=== PATIENT | female | born 1950 | race Caucasian/White ===

== ENCOUNTER 2021-08-27 17:12 | Emergency (ER) | payer MEDICARE, SELFPAY ==
[2021-08-27 17:13] VITALS: BP 165/105; PULSE 66; RESP 16; TEMP 36; O2SAT 100; BMI 37.2
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
--- NOTE | 2021-08-27 17:39 | EKG12_ITS ---
Test Reason : Syncope Blood Pressure : / mmHG Vent. Rate : 063 BPM Atrial Rate : 063 BPM P-R Int : 180 ms QRS Dur : 094 ms QT Int : 424 ms P-R-T Axes : 063 029 073 degrees QTc Int : 433 ms Normal sinus rhythm Normal ECG Confirmed by EZ PARKS, KIMBERLEE ([id number]), fan mail editor FELIBERTO WALTON ([id number]) on 08/29/2021 9:20:36 AM Referred By: Venkata Confirmed By:REJI HUI MD
[2021-08-27 17:56] VITALS: BP 173/120; BP 176/96; BP 185/81; PULSE 66; PULSE 68; PULSE 69
[2021-08-27 18:01] LABS: Absolute Lymphocyte Count 1.14 X10^3/uL (0.83-4.51); Absolute Neutrophil Count 4.5 X10^3/uL (2.0-7.7); Basophil# 0.02 X10^3/uL; Basophil% 0.3 % (0-1); Eosinophil# 0.13 X10^3/uL; Eosinophils% 2.1 % (0-5); Hematocrit 34.7 % (37-47); Hemoglobin 11.3 g/dL (12.0-15.0); Lymphocyte # 1.14 X10^3/ul (0.83-4.51); Mean Corp Hgb Conc 32.6 g/dL (32-36); Mean Corpuscular Hgb 31.8 pg (27.0-32.0); Mean Corpuscular Volume 97.7 fL (81-99); Monocyte# 0.53 X10^3/uL; Monocyte% 8.4 % (0-10); NRBC Flagged by Analyzer 0 % (0-5); Neutrophil # 4.49 X10^3/uL (2.7-7.7); Neutrophil % 70.9 % (47-70); Platelet Count 281 K/mm3 (150-450); RBC Distribution Width CV 14.7 % (11.6-14.6); RBC Distribution Width SD 53.3 fl (35.1-43.9); Red Blood Count 3.55 M/mm3 (4.2-5.4); White Blood Count 6.3 K/mm3 (4.4-11.0)
--- NOTE | 2021-08-27 18:07 | RAD_ITS ---
STUDY: X-RAY CHEST REASON FOR EXAM: Female, 71 years old. Syncope TECHNIQUE: Single frontal view of the chest. COMPARISON: None. FINDINGS: The lungs are clear and expanded. There is no demonstrated pleural abnormality. Normal size heart. Normal mediastinum and allie. Normal visualized pulmonary arteries. Normal visualized aortic arch and descending thoracic aorta. Normal visualized thoracic spine. Normal visualized ribs, clavicles, and shoulders. There is no demonstrated abnormality of the visualized soft tissue structures of the upper abdomen. RAD/Chest 1 View (Portable) IMPRESSION: Normal x-ray examination of the chest. Electronically Signed: Zeke Mullins MD at 18:46 EDT ,
[2021-08-27 18:18] LABS: Mucous, Urine 0 SEEN /hpf (<or=2+)
[2021-08-27 18:21] LABS: Color, Urine Yellow (Yellow); Glucose, Dipstick Normal (Normal); Ketone-Dipstick Negative (Negative); Leukocyte Esterase-Dipstick 500 /ul (Negative); Nitrite-Dipstick Negative (Negative); Occult Blood-Urine 10 /ul (Negative); Protein-Dipstick 100 mg/dl (Negative); Specific Gravity, Urine 1.015 (1.002-1.030); Urine Bilirubin Dipstick Negative (Negative); Urine Clarity Sl. Cloudy (Clear); Urine Urobilinogen Normal (Normal)
[2021-08-27 18:34] LABS: ALB/GLOB Ratio 1.1 RATIO (0.9-2.4); AST(SGOT) 21 U/L (15-37); Alanine Aminotransfer ALT/SGPT 19 U/L (13-56); Albumin, Serum 3.8 g/dL (3.2-5.0); Alkaline Phosphatase 75 U/L (45-117); Anion Gap 7 (5-15); BUN 21 mg/dL (7-18); BUN/Creat Ratio 17.8 RATIO (10-20); Calcium,Total 9.3 mg/dL (8.5-10.1); Chloride 107 mmol/L (98-107); Creatinine, Serum 1.18 mg/dL (0.55-1.02); EST Glomerular Filtration Rate 48 mL/min (>60); Est Glom Filt Rate - Afr Amer 58 mL/min (>60); Estimated Creatinine Clearance 37.22 ml/min; Globulin 3.6 g/dL (2.2-4.2); Glucose 101 mg/dL (74-106); Potassium 3.7 mmol/L (3.5-5.1); Protein, Total 7.4 g/dL (6.4-8.2); Sodium Level 141 mmol/L (136-145); Troponin-I HS 19 pg/mL (3.0-54.0)
[2021-08-27 19:34] LABS: Bacteria 2+ /hpf (None Seen); Calcium Oxalate Crystals Ur 1+ /hpf (<or=2+); Hyaline Cast 5-10 SEEN /lpf (0-5); Red Blood Cells-Urine 5-10 SEEN /hpf (0-5); Squamous Epithelial Cells - UA 5-10 SEEN /hpf (5-10); White Blood Cells 10-25 SEEN /hpf (0-5); Yeast-Urine 1+ /hpf (None Seen)
[2021-08-27] MEDS: Cephalexin 500 MG Capsule PO (20:42)
== END 2021-08-27 20:42 | disposition home or self-care (01) ==
PROVIDERS: Emergency Provider Emergency Medicine; Visit Provider Emergency Medicine
DX: R55 Syncope and collapse (principal); N39.0 Urinary tract infection, site not specified; I10 Essential (primary) hypertension; E66.9 Obesity, unspecified; Z79.899 Other long term (current) drug therapy
CPT/HCPCS: 71045; 80053; 81001; 84484; 85025; 93005; 99285; A4216

== ENCOUNTER 2021-09-08 20:47 | Emergency (ER) | payer MEDICARE, SELFPAY ==
[2021-09-08 20:47] VITALS: BP 177/98; PULSE 72; RESP 16; RESP 18; TEMP 36.7; O2SAT 96; BMI 39.6
--- NOTE | 2021-09-08 21:25 | ED.RN ---
Patient arrived via EMS soiled in dried stool from mid waist to toes. Bed bath given on arrival. During bath patient stated she lived alone and cares for self and ambulates on own, normally is continent.
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
[2021-09-08 21:40] LABS: Absolute Lymphocyte Count 0.83 X10^3/uL (0.83-4.51); Absolute Neutrophil Count 5.6 X10^3/uL (2.0-7.7); Hemoglobin 11.8 g/dL (12.0-15.0); Lymphocyte # 0.83 X10^3/ul (0.83-4.51); Lymphocyte % 11.6 % (19-41); Mean Corp Hgb Conc 32.8 g/dL (32-36); Mean Corpuscular Hgb 31.7 pg (27.0-32.0); Mean Corpuscular Volume 96.8 fL (81-99); Mean Platelet Vol. 9.4 fl (6.2-12.0); Monocyte# 0.68 X10^3/uL; Monocyte% 9.5 % (0-10); NRBC Flagged by Analyzer 0 % (0-5); Neutrophil # 5.62 X10^3/uL (2.7-7.7); Neutrophil % 78.5 % (47-70); Platelet Count 255 K/mm3 (150-450); RBC Distribution Width CV 15.3 % (11.6-14.6); RBC Distribution Width SD 54.3 fl (35.1-43.9); Red Blood Count 3.72 M/mm3 (4.2-5.4); White Blood Count 7.2 K/mm3 (4.4-11.0)
[2021-09-08 21:45] LABS: Color, Urine Yellow (Yellow); Glucose, Dipstick Normal (Normal); Ketone-Dipstick 5 mg/dl (Negative); Leukocyte Esterase-Dipstick 100 /ul (Negative); Nitrite-Dipstick Negative (Negative); Occult Blood-Urine 25 /ul (Negative); Protein-Dipstick 500 mg/dl (Negative); Specific Gravity, Urine 1.015 (1.002-1.030); Urine Bilirubin Dipstick Negative (Negative); Urine Clarity Sl. Cloudy (Clear); Urine Urobilinogen Normal (Normal)
--- NOTE | 2021-09-08 21:45 | RAD_ITS ---
INDICATION: injury EXAMINATION/TECHNIQUE: X-RAY - RIGHT XR Knee 1 or 2 Views 2 VIEWS COMPARISON: None. FINDINGS: SOFT TISSUES: Soft tissue swelling in the knee. No radiopaque foreign body. BONES/JOINTS: No acute fracture. Severe joint space narrowing, subchondral sclerosis and osteophytosis and lateral subluxation at the knee joint, worst in the lateral compartment. Osseous structures in the suprapatellar region measuring up to 2.3 cm, may represent joint body. RAD/Knee 1 or 2 Views IMPRESSION: No acute fracture or dislocation. Severe osteoarthritic changes with lateral subluxation. Electronically Signed: Adrian Wilson MD at 22:12 EDT ,
[2021-09-08 21:54] LABS: Anion Gap 7 (5-15); BUN 19 mg/dL (7-18); BUN/Creat Ratio 14.5 RATIO (10-20); CPK Total, Creatine Kinase 84 U/L (26-192); Calcium,Total 9.1 mg/dL (8.5-10.1); Chloride 105 mmol/L (98-107); Creatinine, Serum 1.31 mg/dL (0.55-1.02); EST Glomerular Filtration Rate 43 mL/min (>60); Est Glom Filt Rate - Afr Amer 52 mL/min (>60); Estimated Creatinine Clearance 33.53 ml/min; Glucose 116 mg/dL (74-106); Potassium 3.5 mmol/L (3.5-5.1); Sodium Level 139 mmol/L (136-145)
[2021-09-08 21:57] LABS: Red Blood Cells-Urine 0-5 SEEN /hpf (0-5); Squamous Epithelial Cells - UA 0-5 SEEN /hpf (5-10); White Blood Cells 10-25 SEEN /hpf (0-5)
[2021-09-08 21:58] LABS: Bacteria 1+ /hpf (None Seen); Mucous, Urine RARE /hpf (<or=2+)
[2021-09-08 23:59] VITALS: BP 211/84; PULSE 76; RESP 16; O2SAT 96
[2021-09-09 00:15] VITALS: BP 211/84; PULSE 76; RESP 16; O2SAT 96
[2021-09-09] MEDS: Smz/Tmp Ds Tablet 1 TABLET PO (00:16)
[2021-09-09 00:42] VITALS: BP 204/88; PULSE 60; RESP 18
== END 2021-09-09 00:48 | disposition home or self-care (01) ==
PROVIDERS: Emergency Provider Emergency Medicine; Visit Provider Emergency Medicine
DX: S80.01XA Contusion of right knee, initial encounter (principal); N39.0 Urinary tract infection, site not specified; M17.11 Unilateral primary osteoarthritis, right knee; I10 Essential (primary) hypertension; E66.9 Obesity, unspecified; W18.39XA Other fall on same level, initial encounter; Z79.899 Other long term (current) drug therapy; Z96.652 Presence of left artificial knee joint
CPT/HCPCS: 73560; 80048; 81001; 82550; 85025; 87086; 87088; 96360; 99285; J7040; A4216

== ENCOUNTER 2022-06-22 19:18 | Observation (INO) | payer MEDICARE, SELFPAY ==
[2022-06-22 19:19] VITALS: BP 232/96; PULSE 89; RESP 18; TEMP 36.5; O2SAT 98; BMI 43.0
--- NOTE | 2022-06-22 19:36 | RAD_ITS ---
INDICATION: Right foot and ankle pain. EXAMINATION/TECHNIQUE: X-RAY - RIGHT XR Ankle Min 3 Views. 3 views. X-RAY - RIGHT XR foot Min 3 Views. 3 views. COMPARISON: None. FINDINGS: SOFT TISSUES: Generalized soft tissue swelling at the lower extremity, ankle and foot. No radiopaque foreign body. BONES/JOINTS: Osteopenia. No acute fracture or subluxation.. Midfoot degenerative changes. First MTP joint degenerative change. Mild degenerative change at the ankle. Small plantar and Achilles tendon enthesophytes. Hammertoe deformities. No sclerotic or destructive changes observed. RAD/Ankle min 3 Views IMPRESSION: No acute osseous injury. Electronically Signed: Bull Gorman MD at 20:47 EDT ,
[2022-06-22 19:43] LABS: Absolute Lymphocyte Count 0.67 X10^3/uL (0.83-4.51); Absolute Neutrophil Count 9.5 X10^3/uL (2.0-7.7); Basophil# 0.01 X10^3/uL; Basophil% 0.1 % (0-1); Hematocrit 38.9 % (37-47); Hemoglobin 12.8 g/dL (12.0-15.0); Lymphocyte # 0.67 X10^3/ul (0.83-4.51); Lymphocyte % 6.1 % (19-41); Mean Corp Hgb Conc 32.9 g/dL (32-36); Mean Corpuscular Hgb 31.4 pg (27.0-32.0); Mean Corpuscular Volume 95.6 fL (81-99); Monocyte# 0.74 X10^3/uL; Monocyte% 6.8 % (0-10); NRBC Flagged by Analyzer 0 % (0-5); Neutrophil # 9.47 X10^3/uL (2.7-7.7); Neutrophil % 86.7 % (47-70); Platelet Count 257 K/mm3 (150-450); RBC Distribution Width CV 14.4 % (11.6-14.6); RBC Distribution Width SD 50.4 fl (35.1-43.9); Red Blood Count 4.07 M/mm3 (4.2-5.4); White Blood Count 10.9 K/mm3 (4.4-11.0)
--- NOTE | 2022-06-22 19:48 | RAD_ITS ---
INDICATION: Right foot and ankle pain. EXAMINATION/TECHNIQUE: X-RAY - RIGHT XR Ankle Min 3 Views. 3 views. X-RAY - RIGHT XR foot Min 3 Views. 3 views. COMPARISON: None. FINDINGS: SOFT TISSUES: Generalized soft tissue swelling at the lower extremity, ankle and foot. No radiopaque foreign body. BONES/JOINTS: Osteopenia. No acute fracture or subluxation.. Midfoot degenerative changes. First MTP joint degenerative change. Mild degenerative change at the ankle. Small plantar and Achilles tendon enthesophytes. Hammertoe deformities. No sclerotic or destructive changes observed. RAD/Foot min 3 Views IMPRESSION: No acute osseous injury. Electronically Signed: Bull Gorman MD at 20:47 EDT ,
[2022-06-22] MEDS: Lisinopril 40 MG Tablet PO (19:50)
[2022-06-22] MEDS: Labetalol (Prefilled) 20 MG/4 ML 10 MG IV (19:50)
--- NOTE | 2022-06-22 19:57 | EDS_ITS ---
HPI <BRANDAN Rowland - Last Filed: 06/22/22 21:07> History of Present Illness Chief Complaint: Edema Narrative Narrative: Patient is a 72-year-old female with history of hypertension, cholesterol, obesity who presents to the emergency department for 4 days of right lower leg swelling. Patient appears to be living in a dilapidated house, she states some nights she sleeps in her house however it is cold she sleeps in her van. Patient states that she is missing ceiling tiles in her house, and it gets too cold. Patient today was going to drive and get gas for her van, however she was unable to step out of her van secondary to not being able to lift her right foot. Patient also states that she has not been taking her blood pressure medicine. She came by ambulance, EMS states that the house is dilapidated, the patient looks disheveled, she has feces and urine down her legs. When asking how she gets around she says she has a rake in her house that she uses however when she has to go into public she does not need the right. PFSH <BRANDAN Rowland - Last Filed: 06/22/22 21:07> [facility] Medical History Chronic acquired lymphedema CKD (chronic kidney disease), stage III Gout HLD (hyperlipidemia) Hypertension Morbid obesity Home Medications allopurinol 300 mg tablet 300 mg PO DAILY 08/27/21 [History Last Taken Unknown] atorvastatin 40 mg tablet 40 mg PO QHS 08/27/21 [History Last Taken Unknown] carvedilol 25 mg tablet 25 mg PO BID 08/27/21 [History Last Taken Unknown] citalopram 20 mg tablet 20 mg PO DAILY 08/27/21 [History Last Taken Unknown] furosemide 20 mg tablet 20 mg PO DAILY 08/27/21 [History Last Taken Unknown] lisinopril 40 mg tablet 40 mg PO DAILY 08/27/21 [History Last Taken Unknown] Allergy/AdvReac Type Severity Reaction Status Date / Time No Known Allergies Allergy Verified 06/22/22 21:49 Family History (Updated 06/22/22 @ 21:[address] Ronda Vega MD) Mother Non-Hodgkins lymphoma Surgical History History of total left knee replacement Social History (Updated 06/22/22 @ 21:[address] Ronda Vega MD) household members: none housing: other details: Per EMS unkempt and unsafe living situation. Smoking Status: Never smoker alcohol intake: current alcohol intake frequency: a few times a month Alcohol type: beer substance use type: does not use ROS <BRANDAN Rowland - Last Filed: 06/22/22 21:07> ROS ED ROS Narrative Constitutional: Negative for fever, chills, weight loss, weakness Eyes: Negative for vision loss, vision change, double vision ENT: Negative for any sore throat, ear pain, congestion Cardiovascular: Negative for any chest pain, tightness, palpitations Respiratory: Negative for any cough, sputum production, hemoptysis, dyspnea, dyspnea on exertion, orthopnea Gastrointestinal: Negative for any abdominal pain, nausea, vomiting, diarrhea, constipation, blood in stool, blood in vomit : Negative for any urinary frequency, dysuria, retention, blood in urine Muscle skeletal: Negative for any muscle joint pain, stiffness, myalgias, arthralgias, neck pain, back pain. Positive for right leg pain, right leg swelling Neurological: Negative for any headache, syncope, numbness or tingling, dizziness Skin: Negative for any rashes, lumps, itching, abrasions, lacerations Psychiatric: Negative for any depression, anxiety, stress, suicidal ideation, homicidal ideation Hematologic: Negative for any easy bruising, excessive bruising, easy bleeding Allergies: Negative for any eczema, hives, rash EXAM <BRANDAN Rowland - Last Filed: 06/22/22 21:07> Physical Exam Narrative Exam Narrative: Vital signs reviewed. Patient is morbidly obese, patient is disheveled, patient is alert and orient x4 however does get annoyed with the multiple questions I am asking. HEET: Head normocephalic atraumatic, TMs clear bilaterally. Posterior pharynx is clear, moist mucous membranes. Nares clear bilaterally. Neck: Supple with no lymphadenopathy or tenderness. No signs of meningismus, negative jolt sign. Cardiac: Regular rate and rhythm no murmurs gallops or rubs, equal peripheral pulses bilaterally. Respiratory: Lungs clear to auscultation bilaterally. No chest tenderness. Abdomen: Soft, nontender, nondistended. No abdominal bruit or pulsatile masses. No hepatosplenomegaly Extremities: Patient does have significant swelling to the right foot, right ankle of the right lower extremity. The right leg feels more tight appearing, no pitting edema. Patient's left leg is also large however not as large as the right. There is no pitting edema. Patient legs are full of feces and urine. Patient's feet have multiple debris stuck to them. Neuro: Cranial nerves II through XII intact, no focal neurological deficits. Skin: intact with no rash, purpura, petechiae, vesicles or pustules. Patient appears to not have bathed in multiple days Backs/flank: No CVA tenderness, no midline spinal tenderness, no deformity. Psych: Normal mood and affect. No SI, HI or acute psychosis. Const Vital Signs: 06/22/22 19:19 06/22/22 19:25 06/22/22 20:25 Temperature 97.7 F L Temperature Source Oral Pulse Rate 89 86 Respiratory Rate 18 16 Respiratory Effort Normal Respiratory Pattern Normal Blood Pressure 232/96 H 195/102 H Blood Pressure Mean 141 133 Pulse Ox 98 97 Oxygen Delivery Method Room Air Room Air Positive cachectic General Appearance ED: cachectic Nutritional Appearance: cachectic <Dr. Cyndi Pena MD - Last Filed: 06/23/22 00:11> Physical Exam Const Vital Signs: 06/22/22 19:19 06/22/22 19:25 06/22/22 20:25 Temperature 97.7 F L Temperature Source Oral Pulse Rate 89 86 Respiratory Rate 18 16 Respiratory Effort Normal Respiratory Pattern Normal Blood Pressure 232/96 H 195/102 H Blood Pressure Mean 141 133 Pulse Ox 98 97 Oxygen Delivery Method Room Air Room Air MDM <BRANDAN Rowland - Last Filed: 06/22/22 21:07> [facility] Lab Data Labs: Laboratory Results - last 24 hr 06/22/22 06/22/22 06/22/22 19:35 19:35 19:35 WBC 10.9 RBC 4.07 L Hgb 12.8 Hct 38.9 MCV 95.6 MCH 31.4 MCHC 32.9 RDW Std Deviation 50.4 H RDW Coeff of Anu 14.4 Plt Count 257 MPV 9.0 Immature Gran % (Auto) 0.300 Neut % (Auto) 86.7 H Lymph % (Auto) 6.[address] [place] % (Auto) 6.8 Eos % (Auto) 0.0 Baso % (Auto) 0.1 Absolute Neuts (auto) 9.5 H Absolute Lymphs (auto) 0.67 L Nucleated RBC % 0 PT INR APTT D-Dimer Quant (PE/DVT) Sodium 140 Potassium 3.9 Chloride 106 Carbon Dioxide 23.0 Anion Gap 11 BUN 40 H Creatinine 1.73 H Estim Creat Clear Calc 25.03 Est GFR (MDRD) Af Amer 37 L Est GFR (MDRD) Non-Af 31 L BUN/Creatinine Ratio 23.1 H Glucose 124 H Calcium 9.8 Phosphorus Magnesium Troponin I High Sens 40 B-Natriuretic Peptide 54.2 06/22/22 06/22/22 06/22/22 19:35 19:35 19:35 WBC RBC Hgb Hct MCV MCH MCHC RDW Std Deviation RDW Coeff of Anu Plt Count MPV Immature Gran % (Auto) Neut % (Auto) Lymph % (Auto) [place] % (Auto) Eos % (Auto) Baso % (Auto) Absolute Neuts (auto) Absolute Lymphs (auto) Nucleated RBC % PT 13.2 INR 1.0 APTT 29.7 D-Dimer Quant (PE/DVT) 3.56 H* Sodium Potassium Chloride Carbon Dioxide Anion Gap BUN Creatinine Estim Creat Clear Calc Est GFR (MDRD) Af Amer Est GFR (MDRD) Non-Af BUN/Creatinine Ratio Glucose Calcium Phosphorus 4.7 Magnesium 1.7 Troponin I High Sens B-Natriuretic Peptide Radiography Diagnostic Testing: Clinical Impression(s) from Imaging Studies Ankle X-Ray 06/22/22 19:36 IMPRESSION: No acute osseous injury. Electronically Signed: Bull Gorman MD at 20:47 EDT , Foot X-Ray 06/22/22 19:48 IMPRESSION: No acute osseous injury. Electronically Signed: Bull Gorman MD at 20:47 EDT , Treatment and Re-Evaluation :: Patient appears to be in no respiratory distress, patient vital signs showed elevated blood pressure 232/96 on arrival, she denies any chest pain or shortness of breath. Patient appears disheveled, and according to the EMS, patient lives in a dilapidated house is not caring for herself. Patient's main concern was right leg swelling, it is more swollen.There is concern for DVT, as patient has pain to the foot as well as to the calf. It is more tender on palpation. Patient did receive x-rays of the right foot and ankle. These x- rays were grossly unremarkable. No evidence of fracture or dislocation. Patient's laboratory values show normal CBC, patient does have acute renal injury with a creatinine of 1.73, in August 2021, the patient's creatinine is 1.3, this is elevated. Patient is also not been taking her blood pressure medicine. I did provide her with lisinopril prior to laboratory studies secondary to this is what she takes at home as well as labetalol 10 mg. Patient's blood pressure is now 181/88. Patient's D-dimer was 3.56. Secondary to this being Thursday evening, venous duplex does not able to be completed. Along with a concern for blood clot in the right leg, elevated blood pressure, I believe the patient needs to be admitted for social standpoint. She is living a dilapidated house, she is sitting in her own feces and urine. She is unable to get around, using a rake at home. She is sleeping in her car because her roof is caving in. I did speak with the hospitalist, she is in agreement, the patient will be a full admission. <Dr. Cyndi Pena MD - Last Filed: 06/23/22 00:11> [facility] Lab Data Labs: Laboratory Results - last 24 hr 06/22/22 06/22/22 06/22/22 19:35 19:35 19:35 WBC 10.9 RBC 4.07 L Hgb 12.8 Hct 38.9 MCV 95.6 MCH 31.4 MCHC 32.9 RDW Std Deviation 50.4 H RDW Coeff of Anu 14.4 Plt Count 257 MPV 9.0 Immature Gran % (Auto) 0.300 Neut % (Auto) 86.7 H Lymph % (Auto) 6.[address] [place] % (Auto) 6.8 Eos % (Auto) 0.0 Baso % (Auto) 0.1 Absolute Neuts (auto) 9.5 H Absolute Lymphs (auto) 0.67 L Nucleated RBC % 0 PT INR APTT D-Dimer Quant (PE/DVT) Sodium 140 Potassium 3.9 Chloride 106 Carbon Dioxide 23.0 Anion Gap 11 BUN 40 H Creatinine 1.73 H Estim Creat Clear Calc 25.03 Est GFR (MDRD) Af Amer 37 L Est GFR (MDRD) Non-Af 31 L BUN/Creatinine Ratio 23.1 H Glucose 124 H Calcium 9.8 Phosphorus Magnesium Troponin I High Sens 40 B-Natriuretic Peptide 54.2 06/22/22 06/22/22 06/22/22 19:35 19:35 19:35 WBC RBC Hgb Hct MCV MCH MCHC RDW Std Deviation RDW Coeff of Anu Plt Count MPV Immature Gran % (Auto) Neut % (Auto) Lymph % (Auto) [place] % (Auto) Eos % (Auto) Baso % (Auto) Absolute Neuts (auto) Absolute Lymphs (auto) Nucleated RBC % PT 13.2 INR 1.0 APTT 29.7 D-Dimer Quant (PE/DVT) 3.56 H* Sodium Potassium Chloride Carbon Dioxide Anion Gap BUN Creatinine Estim Creat Clear Calc Est GFR (MDRD) Af Amer Est GFR (MDRD) Non-Af BUN/Creatinine Ratio Glucose Calcium Phosphorus 4.7 Magnesium 1.7 Troponin I High Sens B-Natriuretic Peptide Radiography Diagnostic Testing: Clinical Impression(s) from Imaging Studies Ankle X-Ray 06/22/22 19:36 IMPRESSION: No acute osseous injury. Electronically Signed: Bull Gorman MD at 20:47 EDT , Foot X-Ray 06/22/22 19:48 IMPRESSION: No acute osseous injury. Electronically Signed: Bull Gorman MD at 20:47 EDT , Treatment and Re-Evaluation :: Patient appears to be in no respiratory distress, patient vital signs showed elevated blood pressure 232/96 on arrival, she denies any chest pain or shortness of breath. Patient appears disheveled, and according to the EMS, patient lives in a dilapidated house is not caring for herself. Patient's main concern was right leg swelling, it is more swollen.There is concern for DVT, as patient has pain to the foot as well as to the calf. It is more tender on palpation. Patient did receive x-rays of the right foot and ankle. These x- rays were grossly unremarkable. No evidence of fracture or dislocation. Patient's laboratory values show normal CBC, patient does have acute renal injury with a creatinine of 1.73, in August 2021, the patient's creatinine is 1.3, this is elevated. Patient is also not been taking her blood pressure medicine. I did provide her with lisinopril prior to laboratory studies secondary to this is what she takes at home as well as labetalol 10 mg. Patient's blood pressure is now 181/88. Patient's D-dimer was 3.56. Secondary to this being Thursday evening, venous duplex does not able to be completed. Along with a concern for blood clot in the right leg, elevated blood pressure, I believe the patient needs to be admitted for social standpoint. She is living a dilapidated house, she is sitting in her own feces and urine. She is unable to get around, using a rake at home. She is sleeping in her car because her roof is caving in. I did speak with the hospitalist, she is in agreement, the patient will be a full admission. Patient seen and evaluated with [facility]. I personally interviewed and examined the patient. I was involved in all aspects of patient's orders, interpretation of results, and treatment. Patient presents due to concern for right leg swelling. She states she is noticed this for the last week. She is concerned she may have a blood clot. She denies chest pain or shortness of breath. Patient is noted to be significantly hypertensive on arrival. She states she did not take her blood pressure medicine this morning but is normally compliant with her medicine. She does not know what her blood pressure normally runs. Patient sitting upright in bed no acute distress. She is unkempt. Head and neck examination reveals no evidence of trauma. Heart is regular rate and rhythm. Lung sounds are clear. Abdomen is soft with no focal tenderness. Lower extremity examination does reveal 3+ right lower extremity edema. She has dried stool noted on her feet and lower legs. Laboratory evaluation reveals normal white count at 10.9 and normal hemoglobin at 12.8. Chemistry studies reveal a BUN of 40 and a creatinine 1.73. This appears slightly increased over prior labs available for comparison. Troponin is normal at 40. BNP is 54. D-dimer is elevated at 3.56. Patient has presented on a Thursday evening when I do not have ultrasound available. She has been given her blood pressure medication to control her hypertension along with a dose of IV labetalol. At this time she will be admitted for blood pressure control and health and social care teacher evaluation. Ultrasound of the leg will be obtained in the morning to evaluate for DVT. Discharge Plan Dx/Rx/DC Orders Clinical Impression: Adult failure to thrive, Hypertension, Acute kidney injury Disposition Disposition: [facility] Discharge Date/Time: 06/22/22 21:31
[2022-06-22 20:03] LABS: BNP,B-Type NATRIURETIC PEPTIDE 54.2 pg/mL (0-100)
[2022-06-22 20:06] LABS: Anion Gap 11 (5-15); BUN 40 mg/dL (7-18); BUN/Creat Ratio 23.1 RATIO (10-20); Calcium,Total 9.8 mg/dL (8.5-10.1); Chloride 106 mmol/L (98-107); Creatinine, Serum 1.73 mg/dL (0.55-1.02); EST Glomerular Filtration Rate 31 mL/min (>60); Est Glom Filt Rate - Afr Amer 37 mL/min (>60); Estimated Creatinine Clearance 25.03 ml/min; Glucose 124 mg/dL (74-106); Potassium 3.9 mmol/L (3.5-5.1); Sodium Level 140 mmol/L (136-145); Troponin-I HS 40 pg/mL (3.0-54.0)
[2022-06-22 20:25] VITALS: BP 195/102; PULSE 86; RESP 16; O2SAT 97
[2022-06-22 20:33] LABS: D-Dimer Quantitative (DVT/PE) 3.56 FEU/ug/m (0.27-0.49)
--- NOTE | 2022-06-22 20:57 | VDLE_ITS ---
Reason For Study: ELEVATED D-DIMER RIGHT GSV is normal. CFV is compressible, spontaneous, phasic, competent and demonstrates normal augmentation. FV is compressible, spontaneous, phasic, competent and demonstrates normal augmentation. POP V is compressible, spontaneous, phasic, competent and demonstrates normal augmentation. T/P Trunk is compressible. PTV is compressible. RT PerV is compressible. NON-VASCULAR structure noted in the POP FOSSA space measuring 3.11cm x 2.57cm. Procedure This is a venous duplex using B-mode, color flow and spectral Doppler. Exam performed portable in patient room. The study was technically difficult. Due to morbid obesity. A preliminary report was called and/or faxed to [facility]. VL/Venous Duplex US, Unilateral Interpretation Summary There is no evidence of right lower extremity deep vein thrombosis. Right great saphenous vein appears patent and compressible segmentally. Technically very difficult examina tion secondary to body habitus Poorly visualized right popliteal nonvascular structure measuring 3.11 x 2.5 cm . Appears somewhat complex solid cystic. Clinical correlation would be appropriate. Ordering Physician: Ronda Vega Referring Physician: [facility] Performed By: Idalia Looney, ROBINA, RVT
[2022-06-22 21:08] VITALS: BP 163/93; PULSE 86; RESP 18; TEMP 36.6; O2SAT 97
[2022-06-22 21:11] LABS: Prothrombin Time (Protime)PT. 13.2 SECONDS (11.7-14.9)
[2022-06-22 21:12] LABS: Partial Thromboplast Time 29.7 Seconds (24.1-36.2)
[2022-06-22 21:15] LABS: Magnesium 1.7 mg/dL (1.6-2.6); Phosphorus 4.7 mg/dL (2.5-4.9)
[2022-06-22 21:34] VITALS: BMI 41.8
--- NOTE | 2022-06-22 21:59 | PCM.HP.STD ---
HPI - General General Date of Admission: 06/22/22 Date of Service: 06/22/22 Chief Complaint: RLE edema, > baseline, discomfort RLE. HPI Narrative The patient is a 72 y/o F w/ PMHx: Morbid Obesity, Chronic BL LE Lymphedema, HTN, HLD, Gout, Anxiety and Depression, CKD stage III unclear subtype who presents to the [facility] ED on 06/22/22 with history of 4 days of worsening RLE edema, discomfort and inability to appropriate care for herself with severe dilapidated poor living conditions with no heat or air and inability to have recently taken her blood pressure medications noted to be very unkempt per EMS covered in her own feces and urine prompting eventual ED evaluation. She denies any specific injury to the right lower extremity but does states she intermittently has discomfort to the right lower extremity especially with increased usage time specifically citing stories while attempting to get into her car. She does intermittently stay and sleep in her car because her roof leaks. Work-up in the ED included T97.7, heart rate 89, BP 232/96, respiratory rate 18, 98% room air, CBC with WC 10.9, 112.8, platelet 257 with left shift and lymphopenia, D-dimer 3.56, BMP with BUN/creatinine 40/1.73, glucose 124, troponin 40, BNP 54.2, plain film of the right ankle with no acute osseous injury, plain film of the right foot with no acute osseous injury. In the ED patient administered labetalol 10 mg IV x1 as well as her lisinopril 40 mg p.o. x1 which she missed on day of presentation. [facility] Medical History Chronic acquired lymphedema CKD (chronic kidney disease), stage III Gout HLD (hyperlipidemia) Hypertension Morbid obesity Home Medications allopurinol 300 mg tablet 300 mg PO DAILY 08/27/21 [History Last Taken Unknown] atorvastatin 40 mg tablet 40 mg PO QHS 08/27/21 [History Last Taken Unknown] carvedilol 25 mg tablet 25 mg PO BID 08/27/21 [History Last Taken Unknown] citalopram 20 mg tablet 20 mg PO DAILY 08/27/21 [History Last Taken Unknown] furosemide 20 mg tablet 20 mg PO DAILY 08/27/21 [History Last Taken Unknown] lisinopril 40 mg tablet 40 mg PO DAILY 08/27/21 [History Last Taken Unknown] Allergy/AdvReac Type Severity Reaction Status Date / Time No Known Allergies Allergy Verified 06/22/22 21:49 Family History (Updated 06/22/22 @ 21:[address] Ronda Vega MD) Mother Non-Hodgkins lymphoma Family History other other (Denies any marked paternal family history including HD, DM, CA.) Surgical History History of total left knee replacement Social History (Updated 06/22/22 @ 21:[address] Ronda Vega MD) household members: none housing: other details: Per EMS unkempt and unsafe living situation. Smoking Status: Never smoker alcohol intake: current alcohol intake frequency: a few times a month Alcohol type: beer substance use type: does not use ROS ROS Narrative Admission Review of Systems: CONSTITUTIONAL: No weight loss, fever, chills, + weakness or fatigue. HEENT: Eyes: No visual loss, blurred vision, double vision or yellow sclerae. Ears, Nose, Throat: No hearing loss, sneezing, congestion, runny nose or sore throat. SKIN: + Various abrasions, dry skin. CARDIOVASCULAR: + Edema, right greater than left. No chest pain, chest pressure or chest discomfort, palpitations, orthopnea, syncopal events. RESPIRATORY: No shortness of breath, cough or sputum, wheezing, hemoptysis. GASTROINTESTINAL: No anorexia, nausea, vomiting or diarrhea, abdominal pain, melena, BRBPR. GENITOURINARY: No dysuria, frequency, urgency or retention. NEUROLOGICAL: No headache, dizziness, syncope, paralysis, ataxia, numbness or tingling in the extremities, focal weakness, change in bowel or bladder control, seizure. MUSCULOSKELETAL: + muscle, back pain, joint pain or stiffness. HEMATOLOGIC: + anemia, bleeding or bruising. LYMPHATICS: No enlarged nodes. No history of splenectomy. PSYCHIATRIC: + history of depression or anxiety. ENDOCRINOLOGIC: No reports of sweating, cold or heat intolerance. No polyuria or polydipsia. ALLERGIES: No history of asthma, hives, eczema or rhinitis. Vital Signs Vital Signs Vital Signs: 06/22/22 19:19 06/22/22 19:25 06/22/22 20:25 Temperature 97.7 F L Temperature Source Oral Pulse Rate 89 86 Respiratory Rate 18 16 Respiratory Effort Normal Respiratory Pattern Normal Blood Pressure 232/96 H 195/102 H Blood Pressure Mean 141 133 Pulse Ox 98 97 Oxygen Delivery Method Room Air Room Air Weight Weight: 242 lb 15.19 oz Body Mass Index (BMI) 43.0 Physical Exam Narrative Physical Examination: General: Awake, alert, oriented x 3 and cooperative, seated upright in the ED bed, fatigued, flat affect, denies any current discomfort to right lower extremity at this time Skin: Normal color, normal turgor, no icterus, no cyanosis except for occasional staged ecchymoses, significantly disheveled with foul odor to bilateral lower extremity and folds, feet covered in dirt, also presence of urine and feces. HEENT: AT/NC, EOMI, PERRLA, dry MM, no carotid bruits, difficulty discerning JVD secondary to extremely thickened neck. Lungs: Diminished, distant breath sounds, appropriate effort, no rales, ronchi or wheezing. Heart: Currently regular rate and rhythm; no gallop, rub audible. Abdomen: Soft, morbidly obese, NTTP, distant BS, unable to discern distention or HSM well given morbidly obese habitus. Extremities: No cyanosis, no clubbing, bilateral lower extremity lymphedema however currently right edema greater than left, mildly tense, mild discomfort to palpation of the calf. Neurological: Patient awake, alert, oriented as noted, cognitive function intact; pupils equally reactive to light and accommodation, cranial nerves II-XII grossly normal, moving all 4 extremities, no focal deficits, strength moderately global decrease secondary to acute complaints and underlying comorbidities Psychiatric: Affect appears flat, no acute evidence of depressive or anxiety feelings but does have underlying history. Results Lab / Micro Data Result Diagrams: 06/22/22 19:35 06/22/22 19:35 Labs: Laboratory Results - last 24 hr 06/22/22 19:35: WBC 10.9, RBC 4.07 L, Hgb 12.8, Hct 38.9, MCV 95.6, MCH 31.4, MCHC 32.9, RDW Std Deviation 50.4 H, RDW Coeff of Anu 14.4, Plt Count 257, MPV 9.0, Immature Gran % (Auto) 0.300, Neut % (Auto) 86.7 H, Lymph % (Auto) 6.1 L, [place] % (Auto) 6.8, Eos % (Auto) 0.0, Baso % (Auto) 0.1, Absolute Neuts (auto) 9.5 H, Absolute Lymphs (auto) 0.67 L, Nucleated RBC % 0 06/22/22 19:35: Sodium 140, Potassium 3.9, Chloride 106, Carbon Dioxide 23.0, Anion Gap 11, BUN 40 H, Creatinine 1.73 H, Estim Creat Clear Calc 25.03, Est GFR (MDRD) Af Amer 37 L, Est GFR (MDRD) Non-Af 31 L, BUN/Creatinine Ratio 23.1 H, Glucose 124 H, Calcium 9.8, Troponin I High Sens 40 06/22/22 19:35: B-Natriuretic Peptide 54.2 06/22/22 19:35: D-Dimer Quant (PE/DVT) 3.56 H* Radiology Impression Ankle X-Ray 06/22/22 19:36 IMPRESSION: No acute osseous injury. Electronically Signed: Bull Gorman MD at 20:47 EDT , Foot X-Ray 06/22/22 19:48 IMPRESSION: No acute osseous injury. Electronically Signed: Bull Gorman MD at 20:47 EDT , Assessment & Plan Assessment/Plan (1) Adult failure to thrive: PLAN: Plan The patient is a 72 y/o F w/ PMHx: Morbid Obesity, Chronic BL LE Lymphedema, HTN, HLD, Gout, Anxiety and Depression, CKD stage III unclear subtype who presents to the [facility] ED on 06/22/22 with history of 4 days of worsening RLE edema, discomfort and inability to appropriate care for herself with severe dilapidated poor living conditions with no heat or air and inability to have recently taken her blood pressure medications noted to be very unkempt per EMS covered in her own feces and urine prompting eventual ED evaluation. #1. Right lower extremity Acute on Chronic BL Lymphedema and associated discomfort, possibly DVT with elevated D-dimer: We will admit to PCU given significantly elevated blood pressures in case of IV as needed agent necessity, will initiate on anticoagulation with heparin drip pending right lower extremity duplex ultrasound, deferring CTPA given elevated D-dimer because of renal function at this time and decision to treat with anticoagulation until duplex ultrasound regardless, will elevate right lower extremity, temporarily holding and nephrotoxic medications given acute kidney injury with resumption once appropriate, maintain on fall precautions, case management/PT/OT consultation for discharge planning especially given unkempt and unsafe living situation. #2. Acute kidney injury on CKD stage III unclear subtype: Unclear exact etiology, admission BUN/Cr 40/1.70, prior baseline creatinine noted to be primarily 1.1-1.3. Will hydrate judiciously, hold nephrotoxic medications and repeat chemistry in AM. If no improvement would plan FeNa assessment. #3. Hypertension, uncontrolled secondary to noncompliance with medications: Patient has been off of her medications, case management consulted for assistance, will continue home regimen including Coreg, temporally holding Lasix and lisinopril given acute kidney injury although lisinopril was given in the ED, PRN hydralazine. #4. Adult failure to thrive: EMS with significant concerns regarding living situation, significant unkempt presentation covered in feces and urine, case management consulted for discharge planning concerns. #5. Hyperlipidemia: We will continue patient on statin therapy. #6. Gout: We will continue patient on allopurinol regimen. #7. Anxiety and depression: We will continue patient home citalopram regimen but if renal function not improving low threshold to hold. #8. Morbid Obesity: Weight loss and lifestyle changes encouraged. #9. DVT prophylaxis: Heparin drip as noted. #10. CODE status: Patient does not have healthcare power of immigration attorney nor living will in place. Discussed CODE STATUS including difference between full code, DNR-CCA as well as DNRCC and elected Full code status. Advanced Care Planning Face to Face Time: 16 minutes. Admission Evaluation Time spent evaluating chart, patient history, patient evaluation, care planning and discussion with specialists: 55 minutes. Charges/Coding Visit Charges Inpatient E&M: 57603 Init Hosp L2 Procedures Hospitalists Procedures: 83000 Advncd Care Plan 30 Min
[2022-06-22 22:00] VITALS: BP 154/100; PULSE 88; RESP 18; TEMP 36.7; O2SAT 100
[2022-06-22] MEDS: 0.9% Normal Saline 1,000 ML 100 ML IV (22:12)
[2022-06-22] MEDS: 0.9% Saline Lock 10 ML Syringe IV (22:12)
[2022-06-22] MEDS: Heparin Injection (Vial) 5,000 UNIT/ML VIAL 8000 UNIT IV (22:30)
[2022-06-22] MEDS: HEPARIN/D5w 25,000 UNITS 25,000 UNITS/250 ML IV.SOLN. 15 UNITS CONT INF (22:31)
[2022-06-22] MEDS: Carvedilol 25 MG Tablet PO (22:33)
[2022-06-22] MEDS: Atorvastatin Calcium 40 MG Tablet PO (22:33)
[2022-06-23 02:59] VITALS: BMI 41.9
[2022-06-23 03:30] VITALS: BP 124/48; PULSE 87; RESP 18; TEMP 36.6; O2SAT 96
[2022-06-23 05:04] LABS: Absolute Lymphocyte Count 1.33 X10^3/uL (0.83-4.51); Absolute Neutrophil Count 5.9 X10^3/uL (2.0-7.7); Basophil# 0.02 X10^3/uL; Basophil% 0.2 % (0-1); Eosinophil# 0.09 X10^3/uL; Eosinophils% 1.1 % (0-5); Hematocrit 31.3 % (37-47); Hemoglobin 10.3 g/dL (12.0-15.0); Lymphocyte # 1.33 X10^3/ul (0.83-4.51); Lymphocyte % 16.1 % (19-41); Mean Corp Hgb Conc 32.9 g/dL (32-36); Mean Corpuscular Hgb 31.8 pg (27.0-32.0); Mean Corpuscular Volume 96.6 fL (81-99); Mean Platelet Vol. 8.7 fl (6.2-12.0); Monocyte# 0.95 X10^3/uL; Monocyte% 11.5 % (0-10); NRBC Flagged by Analyzer 0 % (0-5); Neutrophil # 5.87 X10^3/uL (2.7-7.7); Neutrophil % 70.9 % (47-70); Platelet Count 207 K/mm3 (150-450); RBC Distribution Width CV 14.6 % (11.6-14.6); Red Blood Count 3.24 M/mm3 (4.2-5.4); White Blood Count 8.3 K/mm3 (4.4-11.0)
[2022-06-23 05:23] LABS: Partial Thromboplast Time 197.9 Seconds (24.1-36.2)
[2022-06-23] MEDS: Nystatin Powder 15gm Bottle 1 APPLIC TOPICAL ×2 (05:28→23:12)
[2022-06-23 05:47] LABS: ALB/GLOB Ratio 0.9 RATIO (0.9-2.4); AST(SGOT) 37 U/L (15-37); Alanine Aminotransfer ALT/SGPT 24 U/L (13-56); Albumin, Serum 2.9 g/dL (3.2-5.0); Alkaline Phosphatase 62 U/L (45-117); Anion Gap 8 (5-15); BUN 39 mg/dL (7-18); BUN/Creat Ratio 32.2 RATIO (10-20); Calcium,Total 8.8 mg/dL (8.5-10.1); Chloride 110 mmol/L (98-107); Creatinine, Serum 1.21 mg/dL (0.55-1.02); EST Glomerular Filtration Rate 47 mL/min (>60); Est Glom Filt Rate - Afr Amer 57 mL/min (>60); Estimated Creatinine Clearance 35.79 ml/min; Globulin 3.3 g/dL (2.2-4.2); Glucose 112 mg/dL (74-106); Potassium 3.4 mmol/L (3.5-5.1); Protein, Total 6.2 g/dL (6.4-8.2); Sodium Level 142 mmol/L (136-145)
[2022-06-23] MEDS: 0.9% Normal Saline 1,000 ML 100 ML IV ×2 (08:31→21:13)
[2022-06-23] MEDS: Carvedilol 25 MG Tablet PO ×2 (08:35→23:11)
[2022-06-23] MEDS: Aspirin 81 MG TAB.CHEW PO (08:35)
[2022-06-23] MEDS: Allopurinol 300 MG Tablet PO (08:35)
[2022-06-23] MEDS: Citalopram 20 MG Tablet PO (08:35)
[2022-06-23 08:36] VITALS: BP 121/57; PULSE 76; RESP 16; TEMP 37.1; O2SAT 98
--- NOTE | 2022-06-23 10:33 | MRI_ITS ---
EXAM: MR RIGHT LOWER EXTREMITY WITHOUT AND WITH INTRAVENOUS CONTRAST, KNEE CLINICAL INDICATION: None provided. ?popliteal mass vs cyst on US TECHNIQUE: Multiplanar and multisequence MR images of the right knee without and with intravenous contrast. CONTRAST: IV clariscan 20ml COMPARISON: No relevant prior studies available. FINDINGS: BONES/JOINTS: Torn ACL. Partial thickness tear suspected of the PCL of at least moderate moderate grade. Anterior translation of the tibia relative to the femur. Lateral subluxation of the tibia relative to the femur. Moderate to severe tricompartmental osteoarthrosis. EXTENSOR MECHANISM: Extensor mechanism is intact. MEDIAL MENISCUS: Extensive chronic appearing tearing of the entire lateral meniscus and the posterior horn and body segment of the medial meniscus. LATERAL MENISCUS: Extensive chronic appearing tearing of the entire lateral meniscus and the posterior horn and body segment of the medial meniscus. MEDIAL CAPSULE/SUPPORTING STRUCTURES: Motion artifact limits assessment but suspect moderate grade sprain injury involving the proximal medial collateral ligament; cannot exclude a partial-thickness injury involving the proximal lateral collateral ligament or fibular collateral ligament. LATERAL CAPSULE/SUPPORTING STRUCTURES: See above. ANTERIOR CRUCIATE LIGAMENT: Torn ACL. Partial thickness tear suspected of the PCL of at least moderate moderate grade. POSTERIOR CRUCIATE LIGAMENTTorn ACL. Partial thickness tear suspected of the PCL of at least moderate moderate grade. MUSCLES: Unremarkable. CARTILAGE: Unremarkable. Intact. FLUID: Moderate suprapatellar joint effusion with synovitis. 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 OTHER SOFT TISSUES: Subcutaneous edema throughout. MRI/Lower Ext Joint Only W/WO Cont IMPRESSION: 1. Extensive chronic appearing tearing of the entire lateral meniscus and the posterior horn and body segment of the medial meniscus. 2. ACL disruption. Possible partial-thickness tear of the PCL. 3. 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 4. Moderate suprapatellar joint effusion with synovitis. Electronically Signed: Colin Luna MD at 21:20 EDT ,
--- NOTE | 2022-06-23 10:35 | PN.HOSP_ITS ---
Reason for Visit Reason for Visit: Diagnoses Adult failure to thrive (06/22/22) Subjective Subjective Still having pain and swelling behind right knee and leg but reports after getting up working with physical therapy also having some pain in the knee as well Objective Data Objective Data Vital Signs: Vital Signs Temp Pulse Resp BP Pulse Ox O2 Del Method 98.7 F 76 16 121/57 H 98 Room Air 06/23/22 08:36 06/23/22 08:36 06/23/22 08:36 06/23/22 08:36 06/23/22 08:36 06/23/22 08:50 Oxygen Delivery Method Room Air Weight: 107.4 kg Body Mass Index (BMI) 41.9 Intake & Output: Intake and Output for Last 24 Hours 06/21/22 06/22/22 06/23/22 23:59 23:59 23:59 Intake Total 1104.25 / 1104.25 Output Total 130 / 130 Balance 974.25 / 974.25 Lab / Micro Data Result Diagrams: 06/23/22 04:50 06/23/22 04:50 Labs: Laboratory Results - last 24 hr 06/22/22 19:35: WBC 10.9, RBC 4.07 L, Hgb 12.8, Hct 38.9, MCV 95.6, MCH 31.4, M CHC 32.9, RDW Std Deviation 50.4 H, RDW Coeff of Anu 14.4, Plt Count 257, MPV 9.0, Immature Gran % (Auto) 0.300, Neut % (Auto) 86.7 H, Lymph % (Auto) 6.1 L, [place] % (Auto) 6.8, Eos % (Auto) 0.0, Baso % (Auto) 0.1, Absolute Neuts (auto) 9.5 H, Absolute Lymphs (auto) 0.67 L, Nucleated RBC % 0 06/22/22 19:35: Sodium 140, Potassium 3.9, Chloride 106, Carbon Dioxide 23.0, Anion Gap 11, BUN 40 H, Creatinine 1.73 H, Estim Creat Clear Calc 25.03, Est GFR (MDRD) Af Amer 37 L, Est GFR (MDRD) Non-Af 31 L, BUN/Creatinine Ratio 23.1 H, Glucose 124 H, Calcium 9.8, Troponin I High Sens 40 06/22/22 19:35: B-Natriuretic Peptide 54.2 06/22/22 19:35: D-Dimer Quant (PE/DVT) 3.56 H* 06/22/22 19:35: PT 13.2, INR 1.0, APTT 29.7 06/22/22 19:35: Phosphorus 4.7, Magnesium 1.7 06/23/22 04:50: WBC 8.3, RBC 3.24 L, Hgb 10.3 L, Hct 31.3 L, MCV 96.6, MCH 31.8, MCHC 32.9, RDW Std Deviation 51.0 H, RDW Coeff of Anu 14.6, Plt Count 207, MPV 8.7, Immature Gran % (Auto) 0.200, Neut % (Auto) 70.9 H, Lymph % (Auto) 16.1 L, [place] % (Auto) 11.5 H, Eos % (Auto) 1.1, Baso % (Auto) 0.2, Absolute Neuts (auto) 5.9, Absolute Lymphs (auto) 1.33, Nucleated RBC % 0 06/23/22 04:50: Sodium 142, Potassium 3.4 L, Chloride 110 H, Carbon Dioxide 24.0, Anion Gap 8, BUN 39 H, Creatinine 1.21 H, Estim Creat Clear Calc 35.79, Est GFR (MDRD) Af Amer 57 L, Est GFR (MDRD) Non-Af 47 L, BUN/Creatinine Ratio 32.2 H, Glucose 112 H, Calcium 8.8, Total Bilirubin 0.80, AST 37, ALT 24, Alkaline Phosphatase 62, Total Protein 6.2 L, Albumin 2.9 L, Globulin 3.3, Albumin/Globulin Ratio 0.9 06/23/22 04:50: APTT 197.9 H* Radiography Diagnostic Testing: Radiology Impression Ankle X-Ray 06/22/22 19:36 IMPRESSION: No acute osseous injury. Electronically Signed: Bull Gorman MD at 20:47 EDT , Foot X-Ray 06/22/22 19:48 IMPRESSION: No acute osseous injury. Electronically Signed: Bull Gorman MD at 20:47 EDT , Venous Doppler Study 06/22/22 20:57 Interpretation Summary There is no evidence of right lower extremity deep vein thrombosis. Right great saphenous vein appears patent and compressible segmentally. Technically very difficult examination secondary to body habitus Poorly visualized right popliteal nonvascular structure measuring 3.11 x 2.5 cm. Appears somewhat complex solid cystic. Clinical correlation would be appropriate. Ordering Physician: Ronda Vega Referring Physician: [facility] Performed By: Idalia Looney, ROBINA, RVT Physical Exam Narrative General: Alert, oriented, no apparent distress HEENT: Atraumatic, normocephalic Eyes: Anicteric, normal conjunctiva, extraocular movements grossly intact Neck: Supple Respiratory: Clear to auscultation bilaterally, normal respiratory effort Cardiovascular: Regular rate and rhythm GI: Soft, nontender, nondistended Extremities: Edema both lower extremities with right having an additional 1+ pitting, minimal tenderness on manipulation and palpation of the joints Musculoskeletal: Morbidly obese, moving all extremities, is able to move right leg in bed though some pain with palpating back of knee Neuro: No overt focal neurological deficits Skin: No rashes appreciated Psych: Cooperative Assessment & Plan Assessment/Plan (1) Adult failure to thrive: PLAN: Plan #Right lower extremity edema on chronic bilateral lower extremity lymphedema -Right lower extremity duplex with no evidence of DVT however there is a poorly visualized right popliteal nonvascular structure measuring 3.11 x 2.5 cm which appears somewhat complex solid cystic -MRI with contrast ordered for further/better evaluation -Given no DVT heparin drip stopped and transition to DVT prophylaxis #JANA on CKD stage III unclear subtype -Has been improving with fluids #Hypertensive urgency -Significantly improved #Failure to thrive -PT/OT -Case management consult-patient refusing any home services #Morbid obesity -BMI 41.9 kg/m? -Complicates treatment, prognosis, outcomes -Recommend weight loss and lifestyle changes #DVT ppx: Heparin subcu Leyla Kwok MD Time spent in the patient's overall evaluation,decision-making process, review of diagnostic data, adjustment of management, discussion with other providers, nursing nursing and ancillary staff involved in patient's care documentation, 30 minutes Charges/Coding Visit Charges Inpatient E&M: 17686 Subs Hosp L2
--- NOTE | 2022-06-23 11:22 | CASEMGMT ---
Social Work SW met w/pt in regard to prior level of care and anticipated discharge plan. PCP: Pt goes to [facility] Specialists: None Pharmacy: [facility] between [place] and [address] Insurance: [place] Medicare LNOK: Pt states has some cousins, states friend Marquis is really only person she has. Living arrangements/Prior level of function: Pt lives alone in a one story home, with two steps to enter. Pt states she is independent with all ADLs including cooking, cleaning, caring for self, driving, meds. SW inquired about the heat in the home--as it states in chart pt sleeping in van when it is cold out and pt is missing ceiling tiles. Pt states she has heat but with the tiles missing, it costs a lot to heat the home. She states she sleeps in her van when it's cold and it's warmer in the van. Pt states she is going to get the ceiling fixed, she has someone already to do it. LW/POA: Pt has not completed these documents. Pt states her friend Sapna would likely be her POA, but states she is not filling out the forms. SW educated pt if she were ever in a situation where she could not make decisions for herself, without the documents Sapna would not be able to do it. SW explained in that situation a stranger would be appointed to be her guardian through the court system. Pt states she does not need a guardian. SW again explained to pt the importance of the papers so she could name who she would want to make decisions for her if she couldn't make them for herself--not for this moment but in the future should it ever be needed. Pt continues to refuse. SW offered to give her blank copies to review, pt refused the papers. DME/HHC/SNF: Pt uses no DME, has never had HHC, has never been to SNF. Plan: Home SW spoke w/pt about home health, SNF, outpt therapy, pt declined referrals for all of these. SW asked pt about DME, if she would want a walker if therapy recommends it. Pt states no, she does not want any DME, including a walker. Pt does not want to use anything she feels she does not need. Pt states she got up to the bathroom just now with the aide and is moving slower than usual, but feels she can manage at home fine. Pt declined any and all referrals, stating she will go home. SW/CM remain available should pt become agreeable to any referrals or DME. UMANG Cotter
[2022-06-23] MEDS: Acetaminophen 325 MG Tablet 650 MG PO ×2 (11:38→23:20)
[2022-06-23] MEDS: Potassium Chloride Oral Tablet 20 MEQ 40 MEQ PO (11:39)
[2022-06-23] MEDS: LORazepam 0.5 MG Tablet PO (13:31)
[2022-06-23] MEDS: Heparin Injection (Vial) 5,000 UNIT/ML VIAL 5000 UNIT SC ×2 (13:31→23:11)
[2022-06-23 13:59] LABS: Partial Thromboplast Time 30.1 Seconds (24.1-36.2)
[2022-06-23 14:36] VITALS: BP 131/65; PULSE 73; RESP 16; TEMP 36.5; O2SAT 98
[2022-06-23 19:03] VITALS: BP 134/89; PULSE 76; RESP 16; TEMP 36.9; O2SAT 99
[2022-06-23 22:00] VITALS: BP 159/72; PULSE 79; RESP 16; TEMP 37.2; O2SAT 96
[2022-06-23] MEDS: Atorvastatin Calcium 40 MG Tablet PO (23:12)
[2022-06-23] MEDS: Menthol/Lanolin/Calamine/Znox 113 GM Tube 1 APPLIC TOPICAL (23:12)
[2022-06-24] VITALS (8 sets, daily range): BP systolic 114–159; BP diastolic 65–90; PULSE 68–78; RESP 16–18; TEMP 36.4–37.2; O2SAT 96–97; BMI 44.6; BMI 43.0
[2022-06-24] MEDS: Nystatin Powder 15gm Bottle 1 APPLIC TOPICAL ×3 (05:48→21:19)
[2022-06-24] MEDS: Heparin Injection (Vial) 5,000 UNIT/ML VIAL 5000 UNIT SC ×3 (05:48→21:20)
[2022-06-24] MEDS: 0.9% Normal Saline 1,000 ML 100 ML IV (05:55)
[2022-06-24 06:01] LABS: Absolute Lymphocyte Count 1.34 X10^3/uL (0.83-4.51); Absolute Neutrophil Count 4.4 X10^3/uL (2.0-7.7); Basophil# 0.01 X10^3/uL; Basophil% 0.1 % (0-1); Eosinophil# 0.19 X10^3/uL; Eosinophils% 2.8 % (0-5); Hematocrit 30.1 % (37-47); Hemoglobin 9.5 g/dL (12.0-15.0); Lymphocyte # 1.34 X10^3/ul (0.83-4.51); Mean Corp Hgb Conc 31.6 g/dL (32-36); Mean Corpuscular Hgb 31.7 pg (27.0-32.0); Mean Corpuscular Volume 100.3 fL (81-99); Mean Platelet Vol. 9.1 fl (6.2-12.0); Monocyte# 0.78 X10^3/uL; Monocyte% 11.7 % (0-10); NRBC Flagged by Analyzer 0 % (0-5); Neutrophil # 4.35 X10^3/uL (2.7-7.7); Neutrophil % 65.1 % (47-70); Platelet Count 206 K/mm3 (150-450); RBC Distribution Width CV 14.9 % (11.6-14.6); RBC Distribution Width SD 55.1 fl (35.1-43.9); White Blood Count 6.7 K/mm3 (4.4-11.0)
[2022-06-24] MEDS: Acetaminophen 325 MG Tablet 650 MG PO ×2 (06:05→14:56)
[2022-06-24 06:26] LABS: Anion Gap 4 (5-15); BUN 26 mg/dL (7-18); BUN/Creat Ratio 29.1 RATIO (10-20); Chloride 115 mmol/L (98-107); Creatinine, Serum 0.89 mg/dL (0.55-1.02); EST Glomerular Filtration Rate 66 mL/min (>60); Est Glom Filt Rate - Afr Amer 80 mL/min (>60); Estimated Creatinine Clearance 48.65 ml/min; Glucose 105 mg/dL (74-106); Potassium 3.7 mmol/L (3.5-5.1); Sodium Level 143 mmol/L (136-145)
--- NOTE | 2022-06-24 08:37 | PN.HOSP_ITS ---
Reason for Visit Reason for Visit: Diagnoses Adult failure to thrive (06/22/22) Subjective Subjective Still has right knee pain and right leg swelling. Reports being tired from being woken up. Had no other acute complaints Objective Data Objective Data Vital Signs: Vital Signs Temp Pulse Resp BP Pulse Ox O2 Del Method 98.3 F 74 16 141/69 H 96 Room Air 06/24/22 05:43 06/24/22 05:43 06/24/22 05:43 06/24/22 05:43 06/24/22 05:43 06/24/22 05:43 Oxygen Delivery Method Room Air Weight: 114.3 kg Body Mass Index (BMI) 44.6 Intake & Output: Intake and Output for Last 24 Hours 06/22/22 06/23/22 06/24/22 23:59 23:59 23:59 Intake Total 2746.25 / 2746.25 870 / 870 Output Total 630 / 830 500 / 500 Balance 2116.25 / 1916.25 370 / 370 Lab / Micro Data Result Diagrams: 06/24/22 05:30 06/24/22 05:30 Labs: Laboratory Results - last 24 hr 06/23/22 13:42: APTT 30.1 06/24/22 05:30: WBC 6.7, RBC 3.00 L, Hgb 9.5 L, Hct 30.1 L, MCV 100.3 H, MCH 31.7, MCHC 31.6 L, RDW Std Deviation 55.1 H, RDW Coeff of Anu 14.9 H, Plt Count 206, MPV 9.1, Immature Gran % (Auto) 0.300, Neut % (Auto) 65.1, Lymph % (Auto) 20.0, [place] % (Auto) 11.7 H, Eos % (Auto) 2.8, Baso % (Auto) 0.1, Absolute Neuts (auto) 4.4, Absolute Lymphs (auto) 1.34, Nucleated RBC % 0 06/24/22 05:30: Sodium 143, Potassium 3.7, Chloride 115 H, Carbon Dioxide 24.0, Anion Gap 4 L, BUN 26 H, Creatinine 0.89, Estim Creat Clear Calc 48.65, Est GFR (MDRD) Af Amer 80, Est GFR (MDRD) Non-Af 66, BUN/Creatinine Ratio 29.1 H, Glucose 105, Calcium 8.0 L Radiography Diagnostic Testing: Radiology Impression Venous Doppler Study 06/22/22 20:57 Interpretation Summary There is no evidence of right lower extremity deep vein thrombosis. Right great saphenous vein appears patent and compressible segmentally. Technically very difficult examination secondary to body habitus Poorly visualized right popliteal nonvascular structure measuring 3.11 x 2.5 cm. Appears somewhat complex solid cystic. Clinical correlation would be appropriate. Ordering Physician: Ronda Vega Referring Physician: [facility] Performed By: Idalia Looney, RDCS, RVT Lower Extremity MRI 06/23/22 10:33 IMPRESSION: 1. Extensive chronic appearing tearing of the entire lateral meniscus and the posterior horn and body segment of the medial meniscus. 2. ACL disruption. Possible partial-thickness tear of the PCL. 3. 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 4. Moderate suprapatellar joint effusion with synovitis. Electronically Signed: Colin Luna MD at 21:20 EDT Reading Location ID and State: [facility] / [place] Tel , Service support , Physical Exam Narrative General: Alert, oriented, no apparent distress HEENT: Atraumatic, normocephalic Eyes: Anicteric, normal conjunctiva, extraocular movements grossly intact Neck: Supple Respiratory: Clear to auscultation bilaterally, normal respiratory effort Cardiovascular: Regular rate and rhythm GI: Soft, nontender, nondistended Extremities: Edema both lower extremities with right having an additional 1+ pitting Musculoskeletal: Morbidly obese, moving all extremities, is able to move right leg in bed though some pain with palpating back of knee in front of knee Neuro: No overt focal neurological deficits Skin: No rashes appreciated Psych: Cooperative Assessment & Plan Assessment/Plan (1) Adult failure to thrive: PLAN: Plan #Right lower extremity edema on chronic bilateral lower extremity lymphedema -Right lower extremity duplex with no evidence of DVT however there is a poorly visualized right popliteal nonvascular structure measuring 3.11 x 2.5 cm which appears somewhat complex solid cystic -MRI with contrast ordered for further/better evaluation -Given no DVT heparin drip stopped and transition to DVT prophylaxis -06/24: Lower extremity MRI demonstrated Cho's cyst 7.3 x 3.3 x 2.9 cm without evidence of inferior leakage or rupture, moderate suprapatellar joint effusion with synovitis, ACL and PCL tear as well as lateral and medial meniscus tears. Patient reports she is not particularly interested in any surgical intervention but would be open to injections if applicable. Given her swelling/symptomatic Cho's cyst that is persistent and causing functional difficulty as well as suprapatellar joint effusion with synovitis Ortho has been consulted. No elevated WBC count, will add on esr and crp #JANA on CKD stage III unclear subtype -Has been improving with fluids #Hypertensive urgency -Significantly improved #Failure to thrive -PT/OT -Case management consult-patient refusing any home services #Morbid obesity -BMI 41.9 kg/m? -Complicates treatment, prognosis, outcomes -Recommend weight loss and lifestyle changes #DVT ppx: Heparin subcu Leyla Kwok MD Time spent in the patient's overall evaluation,decision-making process, review of diagnostic data, adjustment of management, discussion with other providers, nursing nursing and ancillary staff involved in patient's care documentation, 30 minutes Charges/Coding Visit Charges Inpatient E&M: 60118 Subs Hosp L2
[2022-06-24] MEDS: Magnesium Sulfate 4gm/100mL 4 GM/100 ML IV.SOLN. IV (09:13)
--- NOTE | 2022-06-24 09:28 | CASEMGMT ---
BRANDON ESCOBAR received call from patient's PCP to discuss discharge planning and concerns for living condition. Per PCP, Abraham from [facility] is involved with patient. BRANDON ESCOBAR updated PCP that patient is refusing needs at discharge. BRANDON ESCOBAR updated SW regarding [facility] involvement with patient.
--- NOTE | 2022-06-24 09:35 | CASEMGMT ---
MARCEL called Abraham at [facility] as they are involved already according to patient's PCP. Abraham said they had services lined up to have patient's home cleaned up. However, patient did not do her part and due to her unpredictable behavior the volunteers were not willing to go out to her home. Abraham said they have tried to get her to go to counseling and she will not. Patient has burned bridges with just about everyone who has helped her. Her roman catholic has even stopped helping. Patient is a hoarder. The roof is caving in not just ceiling tiles falling. Patient's battery is in her van so she cannot use that for warmth. Abraham said patient has a brother who works for the [employer]. Abraham will try and see if she can reach him and maybe a care plan meeting can be arranged. MARCEL let Abraham know patient has declined any services including a walker and to complete advance directives. Patient is adamant she is going home and wants nothing. Abraham will try and reach patient's brother and will get back to Retail Service Representative. April STANLEY
[2022-06-24 09:36] LABS: Erythrocyte Sedimentation Rate 32 mm/hr (0-30)
[2022-06-24] MEDS: Citalopram 20 MG Tablet PO (10:00)
[2022-06-24] MEDS: Allopurinol 300 MG Tablet PO (10:00)
[2022-06-24] MEDS: Carvedilol 25 MG Tablet PO ×2 (10:00→21:20)
[2022-06-24] MEDS: Aspirin 81 MG TAB.CHEW PO (10:00)
[2022-06-24] MEDS: Menthol/Lanolin/Calamine/Znox 113 GM Tube 1 APPLIC TOPICAL ×2 (10:03→21:19)
--- NOTE | 2022-06-24 10:54 | WOUNDNOTE ---
wound photo: right plantar foot
[2022-06-24 13:27] LABS: M R Staph aureus DNA By PCR Negative (Negative); Probe Check PASS; Specimen Processing Control PASS; Staph aureus DNA By PCR NEGATIVE (Negative)
--- NOTE | 2022-06-24 15:26 | CASEMGMT ---
SW received a call from Abraham with [facility]. Abraham was able to reach patient's brother and he does not want anything to do with patient. Patient has burned her bridges with him as well. Abraham spoke with their disability attorney and right now there is nothing that they are going to do. However, if patient were to get re-admitted they may look into doing something. April Allan SECONDARY TEACHER HEALTH MANAGER
--- NOTE | 2022-06-24 19:28 | CONS.ORTHO ---
HPI Consult Data Date of Consult: 06/24/22 HPI Narrative HPI Narrative: LEAH TENORIO, is a 72 F who presented to [facility] 06/22/2022 with 4 days of worsening right lower extremity pain, edema and inability to appropriately care for self. Patient denied any inciting injury or event.She was admitted under the service of the hospitalist. Patient states she had some worsening right knee pain. This prompted x-rays and subsequent MRI of the right knee. I was consulted after MRI was obtained. Patient is aware that her right knee has end-stage osteoarthritis. She underwent left total knee arthroplasty with Dr. Hedrick approximately 5 years ago and states she is doing well with that side. She states she is not a good time in her life for knee replacement surgery. She denies any fevers, chills, nausea or vomiting, chest pain or shortness of breath. She feels her pain is improving. Patient reports a blister on the plantar surface of her right forefoot, she was not aware of this and this was noted upon admission. She denies any injury to the right foot. She states the blister was lanced today and clear fluid was drained. [facility] Medical History (Updated 06/24/22 @ 19:[address] Viraj Gomez DO) Chronic acquired lymphedema CKD (chronic kidney disease), stage III Gout HLD (hyperlipidemia) Hypertension Morbid obesity Home Medications allopurinol 300 mg tablet 300 mg PO DAILY 08/27/21 [History Last Taken Unknown] atorvastatin 40 mg tablet 40 mg PO QHS 08/27/21 [History Last Taken Unknown] carvedilol 25 mg tablet 25 mg PO BID 08/27/21 [History Last Taken Unknown] citalopram 20 mg tablet 20 mg PO DAILY 08/27/21 [History Last Taken Unknown] furosemide 20 mg tablet 20 mg PO DAILY 08/27/21 [History Last Taken Unknown] lisinopril 40 mg tablet 40 mg PO DAILY 08/27/21 [History Last Taken Unknown] Allergy/AdvReac Type Severity Reaction Status Date / Time No Known Allergies Allergy Verified 06/22/22 21:49 Family History (Updated 06/22/22 @ 21:[address] Ronda Vega MD) Mother Non-Hodgkins lymphoma Family History other Surgical History History of total left knee replacement Social History (Updated 06/22/22 @ 21:[address] Ronda Vega MD) household members: none housing: other details: Per EMS unkempt and unsafe living situation. Smoking Status: Never smoker alcohol intake: current alcohol intake frequency: a few times a month Alcohol type: beer substance use type: does not use ROS ROS Narrative 12 point review of systems obtained, negative unless otherwise noted in HPI. Vital Signs Vital Signs Vital Signs: 06/23/22 22:00 06/23/22 22:00 06/23/22 22:00 Temperature 98.9 F Temperature Source Oral Pulse Rate 79 79 Pulse Strength Weak (1+) Respiratory Rate 16 16 Respiratory Effort Normal Respiratory Depth Normal Respiratory Pattern Normal Blood Pressure 159/72 H Blood Pressure Mean 101 Blood Pressure Source Monitor Blood Pressure Position Semi-Fowlers Blood Pressure Location Pulse Ox 96 Oxygen Delivery Method Room Air Room Air 06/24/22 04:10 06/24/22 05:43 06/24/22 08:46 Temperature 98.9 F 98.3 F Temperature Source Oral Oral Pulse Rate 78 74 Pulse Strength Weak (1+) Respiratory Rate 16 16 Respiratory Effort Respiratory Depth Respiratory Pattern Blood Pressure 159/72 H 141/69 H Blood Pressure Mean 101 93 Blood Pressure Source Monitor Monitor Blood Pressure Position Semi-Fowlers Semi-Fowlers Blood Pressure Location Right Arm Right Forearm Pulse Ox 96 96 Oxygen Delivery Method Room Air Room Air 06/24/22 08:49 06/24/22 07:28 06/24/22 09:58 Temperature 97.6 F L Temperature Source Oral Pulse Rate 74 Pulse Strength Respiratory Rate 16 Respiratory Effort Normal Non-Labored Respiratory Depth Normal Respiratory Pattern Normal Blood Pressure 158/70 H Blood Pressure Mean 99 Blood Pressure Source Monitor Blood Pressure Position Semi-Fowlers Blood Pressure Location Right Arm Pulse Ox 96 97 Oxygen Delivery Method Room Air Room Air Room Air 06/24/22 15:03 06/24/22 14:00 Temperature 98.7 F Temperature Source Oral Pulse Rate 68 Pulse Strength Respiratory Rate 16 Respiratory Effort Normal Non-Labored Respiratory Depth Normal Respiratory Pattern Normal Blood Pressure 155/65 H Blood Pressure Mean 95 Blood Pressure Source Monitor Blood Pressure Position Sitting Blood Pressure Location Right Arm Pulse Ox 97 Oxygen Delivery Method Room Air Room Air Weight Weight: 242 lb 8.136 oz Body Mass Index (BMI) 43.0 Physical Exam Narrative General -A&Ox3, NAD, appears stated age. Vital signs stable, afebrile. Respiratory -normal work of breathing, no intercostal retractions. CV -pulses regular, brisk capillary refill ?4 limbs. Abdomen-soft, nontender, nondistended. No guarding, rigidity, rebound tenderness. Musculoskeletal/neurologic -full range of motion nontender throughout bilateral upper extremities, left lower extremity with full sensation and strength in all dermatomes and myotomes. No midline cervical tenderness. Right lower extremity-mildly tender to palpation about the right knee. Questionable 1+ right knee effusion. No erythema. Right knee is not warm to touch. There is minimal edema in the lower leg. There is a deroofed superficial blister noted along the central majority of the plantar forefoot. There is no erythema in the foot. Compartments are soft and compressible. The right knee is stable to varus valgus stressing. Ankle dorsi and plantarflexion are intact actively, no short arc range of motion pain in the knee or ankle. Sensation intact light touch throughout. DP pulse 2+ brisk capillary refill in the toes. Lab / Micro Data Result Diagrams: 06/24/22 05:30 06/24/22 05:30 Labs: Laboratory Results - last 24 hr 06/24/22 05:30: WBC 6.7, RBC 3.00 L, Hgb 9.5 L, Hct 30.1 L, MCV 100.3 H, MCH 31.7, MCHC 31.6 L, RDW Std Deviation 55.1 H, RDW Coeff of Anu 14.9 H, Plt Count 206, MPV 9.1, Immature Gran % (Auto) 0.300, Neut % (Auto) 65.1, Lymph % (Auto) 20.0, [place] % (Auto) 11.7 H, Eos % (Auto) 2.8, Baso % (Auto) 0.1, Absolute Neuts (auto) 4.4, Absolute Lymphs (auto) 1.34, Nucleated RBC % 0 06/24/22 05:30: Sodium 143, Potassium 3.7, Chloride 115 H, Carbon Dioxide 24.0, Anion Gap 4 L, BUN 26 H, Creatinine 0.89, Estim Creat Clear Calc 48.65, Est GFR (MDRD) Af Amer 80, Est GFR (MDRD) Non-Af 66, BUN/Creatinine Ratio 29.1 H, Glucose 105, Calcium 8.0 L 06/24/22 05:30: ESR 32 H 06/24/22 05:30: C-React Prot Ext Range 36.60 H 06/24/22 09:40: S.aureus Protein A PCR NEGATIVE, MRSA (PCR) Negative Micro: Microbiology 06/24/22 09:40 Bulla/Bullae Gram Stain - Final Radiology Impression Lower Extremity MRI 06/23/22 10:33 IMPRESSION: 1. Extensive chronic appearing tearing of the entire lateral meniscus and the posterior horn and body segment of the medial meniscus. 2. ACL disruption. Possible partial-thickness tear of the PCL. 3. 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 4. Moderate suprapatellar joint effusion with synovitis. Electronically Signed: Colin Luna MD at 21:20 EDT , Assessment & Plan Assessment/Plan (1) Arthritis of right knee: PLAN: Patient has end-stage grade 4 right knee osteoarthritis. There is synovitis noted on the MRI. Exam is not consistent with any significant acute process. I would recommend symptomatic treatment with analgesics and physical therapy. Okay for ice and Michael bandage as needed. Patient aware how severe her right knee arthritis is and that she may benefit from a total knee arthroplasty. Certainly, patient needs to be medically optimized as well as a reliable social situation prior to undergoing elective total knee arthroplasty. No plan for surgical intervention at this time. Patient may follow-up with me on an as-needed basis in the outpatient setting. Please not hesitate to call if any questions or concerns arise.
[2022-06-24] MEDS: Atorvastatin Calcium 40 MG Tablet PO (21:20)
[2022-06-25 00:53] VITALS: BP 159/83; PULSE 77; RESP 16; TEMP 36.7; O2SAT 93
[2022-06-25 04:50] LABS: Basophil# 0.01 X10^3/uL; Basophil% 0.2 % (0-1); Eosinophil# 0.33 X10^3/uL; Eosinophils% 5.3 % (0-5); Hematocrit 29.7 % (37-47); Hemoglobin 9.6 g/dL (12.0-15.0); Lymphocyte % 19.3 % (19-41); Mean Corp Hgb Conc 32.3 g/dL (32-36); Mean Corpuscular Hgb 31.6 pg (27.0-32.0); Mean Corpuscular Volume 97.7 fL (81-99); Monocyte# 0.68 X10^3/uL; Monocyte% 10.9 % (0-10); NRBC Flagged by Analyzer 0 % (0-5); Neutrophil # 3.99 X10^3/uL (2.7-7.7); Neutrophil % 64.1 % (47-70); Platelet Count 212 K/mm3 (150-450); RBC Distribution Width CV 14.8 % (11.6-14.6); RBC Distribution Width SD 53.1 fl (35.1-43.9); Red Blood Count 3.04 M/mm3 (4.2-5.4); White Blood Count 6.2 K/mm3 (4.4-11.0)
[2022-06-25 05:14] LABS: Anion Gap 5 (5-15); BUN 20 mg/dL (7-18); BUN/Creat Ratio 24.7 RATIO (10-20); Calcium,Total 8.2 mg/dL (8.5-10.1); Chloride 114 mmol/L (98-107); Creatinine, Serum 0.81 mg/dL (0.55-1.02); EST Glomerular Filtration Rate 74 mL/min (>60); Est Glom Filt Rate - Afr Amer 90 mL/min (>60); Estimated Creatinine Clearance 53.46 ml/min; Glucose 116 mg/dL (74-106); Potassium 4.1 mmol/L (3.5-5.1); Sodium Level 143 mmol/L (136-145)
[2022-06-25 05:36] VITALS: BP 180/94; PULSE 76; RESP 16; TEMP 36.7; O2SAT 97
[2022-06-25] MEDS: Heparin Injection (Vial) 5,000 UNIT/ML VIAL 5000 UNIT SC (05:37)
[2022-06-25] MEDS: Nystatin Powder 15gm Bottle 1 APPLIC TOPICAL (05:37)
[2022-06-25 06:00] VITALS: BMI 43.0
[2022-06-25 08:02] VITALS: O2SAT 96
[2022-06-25 10:10] VITALS: BP 173/72; PULSE 76; RESP 16; TEMP 36.8; O2SAT 97
[2022-06-25] MEDS: Aspirin 81 MG TAB.CHEW PO (10:13)
[2022-06-25] MEDS: Allopurinol 300 MG Tablet PO (10:13)
[2022-06-25] MEDS: Carvedilol 25 MG Tablet PO (10:13)
[2022-06-25] MEDS: Citalopram 20 MG Tablet PO (10:13)
[2022-06-25] MEDS: Menthol/Lanolin/Calamine/Znox 113 GM Tube 1 APPLIC TOPICAL (10:14)
[2022-06-25 10:15] VITALS: O2SAT 97
--- NOTE | 2022-06-25 13:52 | PCM.DC.SUM ---
Providers Date of Admission: 06/22/22 Date of Discharge: 06/25/22 Primary Care Physician: El[facility] Consultations 06/24/22 06:15 Consult: Onc/Wound/boiler testing technician Routine Comment: Reason for Consult:: pt has a huge blister on the bottom of her right foot 06/24/22 06:20 Consult: Orthopedics Routine Consulting Provider: Viraj Gomez Reason for Consult: symptomatic bakers cyst, suprapatellar joint effusion w/ synovitis EMERGENT Consult: No MD Notified: Yes Date Notified: 06/24/22 Time Notified: 08:31 Method of Notification: Verbal Comments:: ACL/PCL tears and latand medial meniscus tears Reason For Visit: RLE EDEMA, POSS DVT, UNCONTROLLED HTN, JANA Diagnosis Discharge Diagnosis (1) Arthritis of right knee: Status: Acute Code(s): M17.11 - Unilateral primary osteoarthritis, right knee Plan #Right lower extremity edema on chronic bilateral lower extremity lymphedema #Severe right knee osteoarthritis #Cho's cyst 7.3 x 3.3 x 2.9 cm #JANA on CKD stage III unclear subtype?JANA resolved #Hypertensive urgency?urgency resolved #Failure to thrive #Morbid obesity Medications at Discharge Home Medications allopurinol 300 mg tablet 300 mg PO DAILY 08/27/21 atorvastatin 40 mg tablet 40 mg PO QHS 08/27/21 carvedilol 25 mg tablet 25 mg PO BID 08/27/21 citalopram 20 mg tablet 20 mg PO DAILY 08/27/21 furosemide 20 mg tablet 20 mg PO DAILY 08/27/21 lisinopril 40 mg tablet 40 mg PO DAILY 08/27/21 doxycycline hyclate 100 mg capsule 100 mg PO BID 5 days #10 caps 06/25/22 Hospital Course Summary of Care Provided Minutes Spent on Discharge: 32 Hospital Course: 72 y/o F w/ PMHx: Morbid Obesity, Chronic BL LE Lymphedema, HTN, HLD, Gout, Anxiety and Depression, CKD stage III unclear subtype who presents to the [facility] ED on 06/22/22 with history of 4 days of worsening RLE edema, discomfort and inability to appropriate care for herself due to her current living conditions. She was brought into the ED and was noted to have bilateral lower lymphedema with some pitting right side greater than left. Hospitalist consulted for admission. She was also noted to have a BP of 232/96 and a D-dimer of 3.56 as well as a creatinine of 1.73 up from baseline. She was given medication to treat her hypertensive urgency and had films of right foot and ankle with no acute injury noted. Given her D-dimer and her lower extremity edema she had a lower extremity duplex which showed no evidence of DVT however there is a poorly visualized right popliteal nonvascular structure measuring 3.11 x 2.5 cm which appears somewhat complex solid cystic. Given no DVT heparin drip was stopped and she was transitioned to DVT prophylaxis and MRI with contrast ordered for better evaluation. Lower extremity MRI demonstrated Cho's cyst 7.3 x 3.3 x 2.9 cm without evidence of inferior leakage or rupture, moderate suprapatellar joint effusion with synovitis, ACL and PCL tear as well as lateral and medial meniscus tears. Given findings orthopedic surgery consulted in the event she needed injections or further work-up given Cho's cyst and suprapatellar effusion. It was felt no acute work-up or intervention necessary and that she would benefit from a knee replacement in the future and can follow-up outpatient though not presently interested in undergoing surgery. Due to her lymphedema she was also evaluated by wound nurse and there is a small blister that was popped and cultured which grew Staph aureus so she was discharged on doxycycline. On day of discharge she reports feeling better and while she still has some pain and swelling she is now able to get around and is comfortable with discharge. No other acute complaints. Discharge instructions as followed: -It is recommended that you follow-up with the orthopedic physician in the office upon discharge if you decide on any intervention for your knee osteoarthritis.? Contact information provided -You were noted to have a blister on your foot that grew Staph aureus, you will be discharged on doxycycline 100 BID for 5 days. -You were noted to be somewhat dehydrated on admission, would recommend holding your furosemide.? You will likely need to restart this in the future but would recommend lab work (BMP) and 3 to 4 days through primary care physician's office to monitor your kidney function.? Please call our office upon discharge to obtain lab work order. -Weigh yourself every day. A sudden weight gain can mean you are retaining fluid. Weigh yourself at the same time of day and in the same kind of clothes. Ideally, weigh yourself first thing in the morning after you empty your bladder, but before you eat breakfast. -Please call your physician if your weight goes up by more than 2 pounds in 1 day or 5 pounds in 1 week. This can be a sign that you are retaining more fluid than you should be -Please call your primary care provider's office upon discharge to schedule a hospital follow up within 1 week. -For any concerning signs or symptoms please call 911 or proceed to the nearest emergency department Physical Exam Narrative General: Alert, oriented, no apparent distress HEENT: Atraumatic, normocephalic Eyes: Anicteric, normal conjunctiva, extraocular movements grossly intact Neck: Supple Respiratory: Clear to auscultation bilaterally, normal respiratory effort Cardiovascular: Regular rate and rhythm GI: Soft, nontender, nondistended Extremities: Edema both lower extremities with right having an additional 1+ pitting but seems to be improving Musculoskeletal: Morbidly obese, moving all extremities, is able to move right leg, some pain when palpating knee Neuro: No overt focal neurological deficits Skin: No rashes appreciated Psych: Cooperative Weight / BMI Weight Weight: 110.2 kg Body Mass Index (BMI) 43.0 ABG / Lab / Microbiology Data Result Diagrams: 06/25/22 04:09 06/25/22 04:09 Laboratory: Laboratory Results - last 24 hr 06/25/22 04:09: WBC 6.2, RBC 3.04 L, Hgb 9.6 L, Hct 29.7 L, MCV 97.7, MCH 31.6, MCHC 32.3, RDW Std Deviation 53.1 H, RDW Coeff of Anu 14.8 H, Plt Count 212, MPV 9.0, Immature Gran % (Auto) 0.200, Neut % (Auto) 64.1, Lymph % (Auto) 19.3, [place] % (Auto) 10.9 H, Eos % (Auto) 5.3 H, Baso % (Auto) 0.2, Absolute Neuts (auto) 4.0, Absolute Lymphs (auto) 1.20, Nucleated RBC % 0 06/25/22 04:09: Sodium 143, Potassium 4.1, Chloride 114 H, Carbon Dioxide 24.0, Anion Gap 5, BUN 20 H, Creatinine 0.81, Estim Creat Clear Calc 53.46, Est GFR (MDRD) Af Amer 90, Est GFR (MDRD) Non-Af 74, BUN/Creatinine Ratio 24.7 H, Glucose 116 H, Calcium 8.2 L Microbiology: Microbiology 06/24/22 09:40 Bulla/Bullae Gram Stain - Final 06/24/22 09:40 Bulla/Bullae Wound Culture - Preliminary Staphylococcus aureus D/C Instructions Discharge Diet: 2000 mg Sodium Diet Meaningful Use Info Meaningful Use Diagnoses (Choose all that apply): None applicable Discharge Plan Admission Admit Date/Time: 06/22/22 20:54 Primary Reason for Your Visit: RLE swelling Attending Provider: Leyla Kwok [facility] Providers: Ronda Vega ; Viraj Gomez Instructions Patient Instructions: ED Cho's Cyst Additional Instructions / Restrictions: DISCHARGE INSTRUCTIONS PLEASE READ *Please take this with you to your next doctors appointment* -It is recommended that you follow-up with the orthopedic physician in the office upon discharge if you decide on any intervention for your knee osteoarthritis. Contact information provided -You were noted to have a blister on your foot that grew Staph aureus, you will be discharged on doxycycline 100 BID for 5 days. -You were noted to be somewhat dehydrated on admission, would recommend holding your furosemide. You will likely need to restart this in the future but would recommend lab work (BMP) and 3 to 4 days through primary care physician's office to monitor your kidney function. Please call our office upon discharge to obtain lab work order. -Weigh yourself every day. A sudden weight gain can mean you are retaining fluid. Weigh yourself at the same time of day and in the same kind of clothes. Ideally, weigh yourself first thing in the morning after you empty your bladder, but before you eat breakfast. -Please call your physician if your weight goes up by more than 2 pounds in 1 day or 5 pounds in 1 week. This can be a sign that you are retaining more fluid than you should be -Please call your primary care provider's office upon discharge to schedule a hospital follow up within 1 week. -For any concerning signs or symptoms please call 911 or proceed to the nearest emergency department Discharge Orders/Prescriptions Prescriptions: New doxycycline hyclate 100 mg capsule 100 mg PO BID 5 Days Qty: 10 0RF Continued atorvastatin 40 mg Tablet 40 mg PO QHS carvedilol 25 mg Tablet 25 mg PO BID Rx Instructions: must administer with a meal/food citalopram 20 mg Tablet 20 mg PO DAILY allopurinol 300 mg Tablet 300 mg PO DAILY lisinopril 40 mg Tablet 40 mg PO DAILY Held furosemide 20 mg Tablet 20 mg PO DAILY Hold Instructions: Resume on 07/02/22. Hold until discussing with your primary care physician Referrals / Follow Up: [facility],Elvie Lisa [Primary Care Provider] - Within 1 Week Disposition Disposition (needs filled in before D/C Order can be placed): Home, Self Care Charges/Coding Visit Charges Inpatient E&M: 93086 Disch Hosp >30min
--- NOTE | 2022-06-25 14:12 | CASEMGMT ---
MARCEL called Abraham from Adult Protective Services and notified her that patient is being discharged today. Patient continues to refuse any assistance. MARCEL called Elvie Lisa and left a message with [employer] for [employer] Mel[employer] letting them know patient is being discharged today and APS's plan. April Allan PRODUCTION PATTERN MAKER JADEN
--- NOTE | 2022-06-25 14:19 | CASEMGMT ---
BRANDON ESCOBAR in to discuss discharge needs. Patient denies needing DME or help at home. Patient states he cousin is helping her home. RN SHAWN instructed patient to follow up with PCP if she has concerns after discharge, patient voiced understanding.
--- NOTE | 2022-06-25 15:18 | PHA.DC.MC ---
Pharmacy Service has performed discharge medication reconciliation and counseling for this patient. 1. DOXYCYCLINE 100MG PO BID X 5 DAYS The patient's discharge medication list was reviewed for discrepancies and discrepancies were resolved. Home Medications allopurinol 300 mg tablet 300 mg PO DAILY 08/27/21 atorvastatin 40 mg tablet 40 mg PO QHS 08/27/21 carvedilol 25 mg tablet 25 mg PO BID 08/27/21 citalopram 20 mg tablet 20 mg PO DAILY 08/27/21 furosemide 20 mg tablet 20 mg PO DAILY 08/27/21 lisinopril 40 mg tablet 40 mg PO DAILY 08/27/21 doxycycline hyclate 100 mg capsule 100 mg PO BID 5 days #10 caps 06/25/22 The patient was counseled on the following discharge medications and changes in medications for homegoing were reviewed. The Reason for Use, instructions for use, and potential side effects were reviewed for all new medications. The patient's questions regarding all of their medications were answered. The patient was able to verbally demonstrate an understanding of their discharge medications. Patient counseled by certified pharmacy techLori
[2022-06-25 16:10] VITALS: BP 166/95; PULSE 75; RESP 16; TEMP 36.7; O2SAT 97
== END 2022-06-25 16:37 | disposition home or self-care (01) | DRG 558 ==
LOC: ED 21:07 → PCU 06-23 04:18
PROVIDERS: Nurse Practitioner; Admitting Provider Family Medicine; Emergency Provider Emergency Medicine; Visit Provider Internal Medicine
DX: M71.21 Synovial cyst of popliteal space [Baker], right knee (principal); N17.9 Acute kidney failure, unspecified; Z68.41 Body mass index [BMI] 40.0-44.9, adult; E66.01 Morbid (severe) obesity due to excess calories; N18.30 Chronic kidney disease, stage 3 unspecified; M17.11 Unilateral primary osteoarthritis, right knee; I89.0 Lymphedema, not elsewhere classified; E78.5 Hyperlipidemia, unspecified; I12.9 Hypertensive chronic kidney disease with stage 1 through stage 4 chronic kidney disease, or unspecified chronic kidney disease; I16.0 Hypertensive urgency; F41.9 Anxiety disorder, unspecified; M10.9 Gout, unspecified; B95.62 Methicillin resistant Staphylococcus aureus infection as the cause of diseases classified elsewhere; R62.7 Adult failure to thrive; R23.8 Other skin changes; Z96.652 Presence of left artificial knee joint; Z91.148 Patient's other noncompliance with medication regimen for other reason; Z59.19 Other inadequate housing; Z79.899 Other long term (current) drug therapy; F32.A Depression, unspecified; S90.821A Blister (nonthermal), right foot, initial encounter; X58.XXXA Exposure to other specified factors, initial encounter; B95.61 Methicillin susceptible Staphylococcus aureus infection as the cause of diseases classified elsewhere
CPT/HCPCS: 36415; 73610; 73630; 73723; 80048; 80053; 83735; 83880; 84100; 84484; 85025; 85379; 85610; 85652; 85730; 86140; 87070; 87186; 87205; 87640; 93971; 94668; 96361; 96365; 96366; 96367; 96372; 96375; 96376; 97110; 97162; 97166; 97530; 97535; 97802; 99221; 99285; A9575; J7030; A4216; G0378

== ENCOUNTER 2022-06-25 21:23 | Emergency (ER) | payer MEDICARE, SELFPAY ==
[2022-06-25 21:24] VITALS: BP 197/83; PULSE 81; RESP 20; TEMP 37.5; O2SAT 96; BMI 44.1
--- NOTE | 2022-06-25 21:30 | CM.ED ---
Social Work Note SW met with patient's RN and EMS to review concerns. EMS report patient's house is in deplorable conditions, has a lot of cats urinating around the home and makes a hoarders home look good. EMS report safety concerns as they had to make a path to get to the patient and patient has informed them she was previously living out of her van. SW reviewed patient's recent visit and informed RN APS is involved and patient had declined SNF/HHC options. Aishwarya CALLOWAY, JADEN
--- NOTE | 2022-06-25 21:38 | ED.RN ---
PER EMS PT'S HOME IN DEPLORABLE CONDITIONS. NUMEROUS CATS IN HOUSE, EYES WATER FROM CAT URINE AND FECES. EMS STATES THE HOME IS UNSAFE FOR PT, GARBAGE HAD TO BE SHOVED ASIDE IN ORDER TO ACCESS PT.
--- NOTE | 2022-06-25 21:51 | EKG12_ITS ---
Test Reason : DYSRHYTHMIA Blood Pressure : / mmHG Vent. Rate : 080 BPM Atrial Rate : 080 BPM P-R Int : 172 ms QRS Dur : 088 ms QT Int : 376 ms P-R-T Axes : 062 033 057 degrees QTc Int : 433 ms Normal sinus rhythm Normal ECG Confirmed by ANALIA PARKS, LIZABETH ([id number]), greeting card editor FELIBERTO WALTON ([id number]) on 06/27/2022 8:13:47 AM Referred By: CLAIRE Confirmed By:LIZABETH HELMS MD
--- NOTE | 2022-06-25 21:52 | EDS_ITS ---
HPI History of Present Illness Chief Complaint: Dizziness Detail of Chief Complaint: Dizziness Informant: patient Narrative Narrative: Patient presents to the emergency department complaint of dizziness that started today. Patient states that she was at home doing some cleaning after getting home from the hospital today. Patient was admitted for acute kidney injury and hypertensive emergency as well as an issue with her right leg. Patient states that she acutely felt lightheaded and felt like she was in a pass out. She denied vertiginous symptoms. She denies chest pain or shortness of breath. Patient states that she sat down and then really could not get back up because of the pain in her right leg. She denies fever or chills or sweats. [facility] Medical History (Updated 06/25/22 @ 23:[address] Wesley Henao DO) Chronic acquired lymphedema CKD (chronic kidney disease), stage III Gout HLD (hyperlipidemia) Hypertension Morbid obesity Home Medications allopurinol 300 mg tablet 300 mg PO DAILY 08/27/21 [History Last Taken Unknown] atorvastatin 40 mg tablet 40 mg PO QHS 08/27/21 [History Last Taken Unknown] carvedilol 25 mg tablet 25 mg PO BID 08/27/21 [History Last Taken Unknown] citalopram 20 mg tablet 20 mg PO DAILY 08/27/21 [History Last Taken Unknown] furosemide 20 mg tablet 20 mg PO DAILY 08/27/21 [History Last Taken Unknown] lisinopril 40 mg tablet 40 mg PO DAILY 08/27/21 [History Last Taken Unknown] doxycycline hyclate 100 mg capsule 100 mg PO BID 5 days #10 caps 06/25/22 [Rx Last Taken Unknown] Allergy/AdvReac Type Severity Reaction Status Date / Time No Known Allergies Allergy Verified 06/25/22 21:37 Family History (Updated 06/22/22 @ 21:[address] Ronda Vega MD) Mother Non-Hodgkins lymphoma Surgical History History of total left knee replacement Social History (Updated 06/22/22 @ 21:[address] Ronda Vega MD) household members: none housing: other details: Per EMS unkempt and unsafe living situation. Smoking Status: Never smoker alcohol intake: current alcohol intake frequency: a few times a month Alcohol type: beer substance use type: does not use ROS ROS ED Review of Systems ROS Unobtainable: other Constitutional Constitutional ED: Reports lethargy; Denies chills, fever(s), sweats or weight loss Eyes Eyes: Denies blurry vision, change in vision or diplopia ENT ENT ED: Denies rhinorrhea or sore throat Cardiovascular Cardiovascular: Denies chest pain, orthopnea or racing heartbeat Respiratory/Chest Respiratory/Chest: Denies cough, dyspnea, dyspnea on exertion, orthopnea or sputum Gastrointestinal Gastrointestinal: Denies abdominal pain, diarrhea, nausea or vomiting Genitourinary Genitourinary ED: Denies dysuria, hematuria or urinary frequency Musculoskeletal Musculoskeletal: Denies arthralgias, back pain, myalgias or neck pain Integumentary Denies abscess, Abrasions or rash Neurologic Neurologic: Reports other Details: Dizziness ; Denies headache(s) or weakness Psychiatric Psychiatric: Denies anxiety, depression or suicidal thoughts Endocrine Endocrinology: Denies polydipsia, polyphagia or polyuria Hematologic/Lymphatic Hematologic/Lymphatic: Denies easy bleeding, easy bruising or lymphadenopathy Allergic/Immunologic Allergic/Immunologic ED: Denies mouth swelling, tongue swelling or urticaria EXAM Physical Exam Const Vital Signs: 06/25/22 21:24 06/25/22 21:37 06/25/22 23:20 Temperature 99.5 F H Temperature Source Temporal Pulse Rate 81 Pulse Rate [Lying] 88 Pulse Rate [Sitting (for 1 minute prior to obtaining)] 89 Pulse Rate [Standing (for 1 minute prior to obtaining)] 83 Respiratory Rate 20 H Respiratory Effort Normal Non-Labored Respiratory Pattern Normal Blood Pressure 197/83 H Blood Pressure [Lying] 207/90 H Blood Pressure [Sitting (for 1 minute prior to obtaining)] 234/119 H Blood Pressure [Standing (for 1 minute prior to obtaining)] 217/91 H Blood Pressure Mean 121 Blood Pressure Mean [Lying] 129 Blood Pressure Mean [Sitting (for 1 minute prior to obtaining)] 157 Blood Pressure Mean [Standing (for 1 minute prior to obtaining)] 133 Pulse Ox 96 Oxygen Delivery Method Room Air Positive well nourished and well developed General Appearance ED: well developed and NAD HEENT Reports TM's clear and moist mucous membranes normocephalic and atraumatic; Negative for trauma or tenderness Tympanic Membrane ED: Yes TM's clear Eyes PERRL and EOMs intact bilaterally General Eye ED: Negative for pale conjunctiva or scleral icterus Neck no lymphadenopathy, supple and no JVD General: Negative for tenderness Chest Wall inspection of chest normal and palpation of chest normal Chest: Negative for tenderness Resp normal respiratory effort and clear to auscultation bilaterally Effort and Inspection: Negative for respiratory distress or pain with movement Auscultation: Negative for rhonchi, wheezes or diminished lung sounds Cardio regular rate, regular rhythm, S1 normal heart sound, S2 normal heart sound and no murmurs Peripheral Pulses: pulses 2+ throughout GI normal to inspection, nondistended, normoactive bowel sounds, soft to palpation, non-tender, non-distended and no masses Back/Spine no CVA tenderness and no thoracic nor lumbar tenderness Extremity Extremity Narrative: Right foot-patient does have an old blister on the bottom of the right foot that was apparently opened up and drained by staff prior to patient being discharged from the hospital. She does have some faint erythema about the foot and some yellowish drainage on the dressing. Patient has tenderness to the plantar aspect of the foot on palpation. General Extremety ED: Negative for edema General Extremity: Negative for edema Neuro oriented x3, CN's II-XII intact bilaterally, no sensory deficits noted and gait normal Sensorium / Orientation: awake, alert, oriented to person, oriented to place and oriented to time Motor Exam: strength 5/5 throughout and strength abnormal Psych mental status grossly normal Skin no rashes or lesions noted and no wounds MDM MDM MDM Narrative Medical decision making narrative: Patient presents with complaint of dizziness that is now resolved. She was discharged from the hospital today after being here for acute kidney injury and right leg pain and elevated blood pressures. Patient neurologically intact. Etiology of her dizziness is unclear. In the differential would be cardiac etiology versus vasovagal episode versus infectious etiology versus hypertensive emergency. IV line established on arrival. Patient placed on a cardiac nurse specialist. EKG obtained showed a sinus rhythm with a ventricular rate of 80 bpm with no acute ST segment changes. CBC with differential showed a white count of 9.6 with hemoglobin 11.5 and platelet count 299. Chemistries unremarkable. BUN 20 and creatinine 1.02. Lactate was normal 1.0. Troponin was normal at 20. Urinalysis was normal. I did obtain x-ray of her right foot and I do not appreciate any evidence of gas within the soft tissues or foreign bodies or other acute disease process. No evidence of osteomyelitis. Patient report from radiology pending. EMS had concerns about patient's living conditions. clinical services consultant and Adult Protective Services apparently is involved with the patient. Patient does not want placement. Patient does not want admission to the hospital. Blood pressure is elevated and she states that normally it is not elevated but she is frustrated and upset and she thinks that is why her blood pressure is high. I did order hydralazine 5 mg IV. She did have a low-grade temp of 99.5. It is noted that she was discharged today with doxycycline because of a blister on her right foot that was opened and drained and she grew out staph from that. Patient understands my concerns about her elevated blood pressures and her living conditions at home and I recommended admission but she is refusing. Patient is competent and has capacity to refuse. She will be discharged to home and advised to follow-up with primary care physician within next 1 to 2 days. She is to return if condition should worsen anyway. Patient was able to ambulate in the department without much difficulty. Lab Data Attestation: I reviewed the patient's lab results. Labs: Laboratory Results - last 24 hr 06/25/22 06/25/22 06/25/22 20:50 20:50 22:05 WBC 9.6 RBC 3.62 L Hgb 11.5 L Hct 35.7 L MCV 98.6 MCH 31.8 MCHC 32.2 RDW Std Deviation 51.8 H RDW Coeff of Anu 14.3 Plt Count 299 MPV 9.8 Immature Gran % (Auto) 0.300 Neut % (Auto) 78.1 H Lymph % (Auto) 9.4 L [place] % (Auto) 7.9 Eos % (Auto) 4.2 Baso % (Auto) 0.1 Absolute Neuts (auto) 7.5 Absolute Lymphs (auto) 0.90 Nucleated RBC % 0 Sodium 140 Potassium 4.1 Chloride 106 Carbon Dioxide 25.0 Anion Gap 9 BUN 20 H Creatinine 1.02 Estim Creat Clear Calc 42.45 Est GFR (MDRD) Af Amer 69 Est GFR (MDRD) Non-Af 57 L BUN/Creatinine Ratio 19.6 Glucose 142 H Lactic Acid 1.0 Calcium 9.1 Troponin I High Sens 20 Urine Color Urine Clarity Urine pH Ur Specific [place] Urine Protein Urine Glucose (UA) Urine Ketones Urine Occult Blood Urine Nitrite Urine Bilirubin Urine Urobilinogen Ur Leukocyte Esterase Urine RBC Urine WBC Ur Squamous Epith Cells Urine Bacteria Urine Mucus 06/25/22 22:45 WBC RBC Hgb Hct MCV MCH MCHC RDW Std Deviation RDW Coeff of Anu Plt Count MPV Immature Gran % (Auto) Neut % (Auto) Lymph % (Auto) [place] % (Auto) Eos % (Auto) Baso % (Auto) Absolute Neuts (auto) Absolute Lymphs (auto) Nucleated RBC % Sodium Potassium Chloride Carbon Dioxide Anion Gap BUN Creatinine Estim Creat Clear Calc Est GFR (MDRD) Af Amer Est GFR (MDRD) Non-Af BUN/Creatinine Ratio Glucose Lactic Acid Calcium Troponin I High Sens Urine Color Yellow Urine Clarity Clear Urine pH 6.0 Ur Specific [place] 1.010 Urine Protein 100 H Urine Glucose (UA) Normal Urine Ketones Negative Urine Occult Blood 10 H Urine Nitrite Negative Urine Bilirubin Negative Urine Urobilinogen Normal Ur Leukocyte Esterase 25 H Urine RBC 0 SEEN Urine WBC 0 SEEN Ur Squamous Epith Cells 0 SEEN Urine Bacteria 0 SEEN Urine Mucus 0 SEEN Radiography Diagnostic Testing: Three-view x-rays of right foot obtained interpreted by myself as no acute fractures or evidence of osteomyelitis or gas within the soft tissues. Official report from radiology pending. EKG Initial EKG: Attestation: I personally reviewed and interpreted this EKG as follows: Comments: Sinus rhythm with a ventricular rate of 80 bpm with no acute ST segment changes Discharge Plan Triage Chief Complaint: Dizziness ED Provider: Wesley Henao Dx/Rx/DC Orders Clinical Impression: Hypertension, Dizziness Instructions: ED Dizziness, Uncertain Cause, ED Hypertension, Established Prescriptions: No Action atorvastatin 40 mg Tablet 40 mg PO QHS carvedilol 25 mg Tablet 25 mg PO BID Rx Instructions: must administer with a meal/food citalopram 20 mg Tablet 20 mg PO DAILY allopurinol 300 mg Tablet 300 mg PO DAILY furosemide 20 mg Tablet 20 mg PO DAILY Hold Instructions: Resume on 07/02/22. Hold until discussing with your primary care physician lisinopril 40 mg Tablet 40 mg PO DAILY doxycycline hyclate 100 mg capsule 100 mg PO BID 5 Days Qty: 10 0RF Primary Care Provider: Elvie Romo Referrals: [facility] Elvie Lau [Primary Care Provider] - 1-2 Days if not im proving Disposition Disposition: Home, Self Care
[2022-06-25 22:09] LABS: Absolute Neutrophil Count 7.5 X10^3/uL (2.0-7.7); Basophil# 0.01 X10^3/uL; Basophil% 0.1 % (0-1); Eosinophils% 4.2 % (0-5); Hematocrit 35.7 % (37-47); Hemoglobin 11.5 g/dL (12.0-15.0); Lymphocyte % 9.4 % (19-41); Mean Corp Hgb Conc 32.2 g/dL (32-36); Mean Corpuscular Hgb 31.8 pg (27.0-32.0); Mean Corpuscular Volume 98.6 fL (81-99); Mean Platelet Vol. 9.8 fl (6.2-12.0); Monocyte# 0.76 X10^3/uL; Monocyte% 7.9 % (0-10); NRBC Flagged by Analyzer 0 % (0-5); Neutrophil # 7.46 X10^3/uL (2.7-7.7); Neutrophil % 78.1 % (47-70); Platelet Count 299 K/mm3 (150-450); RBC Distribution Width CV 14.3 % (11.6-14.6); RBC Distribution Width SD 51.8 fl (35.1-43.9); Red Blood Count 3.62 M/mm3 (4.2-5.4); White Blood Count 9.6 K/mm3 (4.4-11.0)
--- NOTE | 2022-06-25 22:20 | RAD_ITS ---
EXAM: XR RIGHT FOOT COMPLETE, 3 OR MORE VIEWS CLINICAL INDICATION: pain, swelling TECHNIQUE: Frontal, lateral and oblique views of the right foot. COMPARISON: No relevant prior studies available. FINDINGS: BONES/JOINTS: Calcaneal spur is noted. Prominent heel pad, 2.2 cm thickness with soft tissue stranding in the fat. Diffuse demineralization. Degenerative changes of the hindfoot and calcaneal-distal tarsal junctions. No scarlet bone destruction or joint destruction. Degenerative change at the first IP joint. No acute fracture. No subluxation. Normal alignment. SOFT TISSUES: Dorsal soft tissue swelling and swelling of the ball of the foot, best seen on the lateral view. No radiopaque foreign body. No soft tissue gas. RAD/Foot min 3 Views IMPRESSION: Demineralization, degenerative changes. Calcaneal spur. Multifocal soft tissue swelling. No soft tissue gas or scarlet bone or joint destruction identified. Electronically Signed: Roz Lai MD at 0:27 EDT ,
[2022-06-25 22:29] LABS: Anion Gap 9 (5-15); BUN 20 mg/dL (7-18); BUN/Creat Ratio 19.6 RATIO (10-20); Calcium,Total 9.1 mg/dL (8.5-10.1); Chloride 106 mmol/L (98-107); Creatinine, Serum 1.02 mg/dL (0.55-1.02); EST Glomerular Filtration Rate 57 mL/min (>60); Est Glom Filt Rate - Afr Amer 69 mL/min (>60); Estimated Creatinine Clearance 42.45 ml/min; Glucose 142 mg/dL (74-106); Potassium 4.1 mmol/L (3.5-5.1); Sodium Level 140 mmol/L (136-145); Troponin-I HS 20 pg/mL (3.0-54.0)
[2022-06-25 22:51] LABS: Bacteria 0 SEEN /hpf (None Seen); Mucous, Urine 0 SEEN /hpf (<or=2+); Red Blood Cells-Urine 0 SEEN /hpf (0-5); Squamous Epithelial Cells - UA 0 SEEN /hpf (5-10); White Blood Cells 0 SEEN /hpf (0-5)
[2022-06-25 22:54] LABS: Color, Urine Yellow (Yellow); Glucose, Dipstick Normal (Normal); Ketone-Dipstick Negative (Negative); Leukocyte Esterase-Dipstick 25 /ul (Negative); Nitrite-Dipstick Negative (Negative); Occult Blood-Urine 10 /ul (Negative); Protein-Dipstick 100 mg/dl (Negative); Urine Bilirubin Dipstick Negative (Negative); Urine Clarity Clear (Clear); Urine Urobilinogen Normal (Normal)
[2022-06-25 23:20] VITALS: BP 207/90; BP 217/91; BP 234/119; PULSE 83; PULSE 88; PULSE 89
[2022-06-25] MEDS: 0.9% Normal Saline 1,000 ML 150 ML IV (23:21)
[2022-06-25] MEDS: hydrALAZINE 20 MG/ML Vial 5 MG IV (23:31)
[2022-06-25 23:32] VITALS: BP 191/79; PULSE 83; RESP 18; O2SAT 25
[2022-06-26 00:01] VITALS: BP 184/99; PULSE 76; RESP 18; O2SAT 98
--- NOTE | 2022-06-26 00:12 | ED.RN ---
patient assisted to bathroom. patient no longer wants to be a patient and wants to leave. patient up for discharge at this time and given discharge instructions. patient advised she does not have a ride home at this time. patient advised that she will need to stay in the room until morning until she can find a ride home. patient arguing with staff and stating shes not staying the room. nurse asked patient she if she has a way home. patient states dont worry about it its not your problem. Patient made aware due to the time of the day waiting room is closed due to lack of staff. patient advised she will take care of herself at this time.
--- NOTE | 2022-06-26 10:19 | CASEMGMT ---
MARCEL received a call from Abraham [facility]. Abraham received phone calls about patient being back in the hospital. MARCEL let Abraham know patient was in the ER, but was discharged. MARCEL went through squad report and ER physician's note. Patient actually refused to be admitted last night. April STANLEY
== END 2022-06-26 00:15 | disposition home or self-care (01) ==
PROVIDERS: Emergency Provider Emergency Medicine; Visit Provider Emergency Medicine
DX: R42 Dizziness and giddiness (principal); N17.9 Acute kidney failure, unspecified; N18.30 Chronic kidney disease, stage 3 unspecified; Z60.9 Problem related to social environment, unspecified; M79.604 Pain in right leg; I12.9 Hypertensive chronic kidney disease with stage 1 through stage 4 chronic kidney disease, or unspecified chronic kidney disease; E78.5 Hyperlipidemia, unspecified
CPT/HCPCS: 73630; 80048; 81001; 83605; 84484; 85025; 93005; 96361; 96374; 99285; A4216

== ENCOUNTER 2022-06-26 14:26 | Observation (INO) | payer MEDICARE, SELFPAY ==
[2022-06-26 14:27] VITALS: BP 132/91; PULSE 79; RESP 18; TEMP 36.1; O2SAT 95
[2022-06-26 14:45] VITALS: BMI 43.2
--- NOTE | 2022-06-26 16:12 | CM.ED ---
Social Work SW introduced self and role. Patient has recent hospitalization in PCU and returned to the ED last night and was discharged at her insistence and then returned to the ED today. Patient has been disagreeable to short-term SNF previously. Pt is realizing she is unable to care for self without being able to walk well currently. Pt reports she would like assisted living and she will not go to a skilled nursing. SW discussed patient's options financially. With assisted living being self-pay patient denies ability to cover costs. Discussed SNF options and provided patient with a SNF list according to her insurance and needs through [facility]. Patient requests referral to TCU. Patient will need a precert through insurance. Patient willing to go to SNF on a short-term basis for therapy and would like to return home when able. SW to follow up with placement. Kimberly Hoffman HUB INVENTORY SPECIALIST, COMMUNICATIONS TECH
[2022-06-26] MEDS: Doxycycline 100 MG CAPSULE PO (16:39)
[2022-06-26] MEDS: Carvedilol 25 MG Tablet PO (16:39)
[2022-06-26] MEDS: Lisinopril 40 MG Tablet PO (16:39)
[2022-06-26] MEDS: Ibuprofen 200 MG Tablet 400 MG PO (16:39)
[2022-06-26] MEDS: Acetaminophen 325 MG Tablet PO (16:39)
[2022-06-26] MEDS: Citalopram 10 MG Tablet 20 MG PO (16:39)
--- NOTE | 2022-06-26 16:39 | EX.ED.DYSGE1 ---
HPI <THEA Lozano - Last Filed: 06/26/22 19:34> History of Present Illness Chief Complaint: General Illness Narrative Narrative: Patient presenting today requesting to be admitted to a correction facility. She states that she lives at home by herself and is unable to ambulate around her home efficiently due to pain in her right foot. She also reports that she lives with a lot of cats, there are ceiling tiles missing in her home, and she sometimes sleeps in her car. Patient was recently seen in the emergency department last night for dizziness and refused being admitted for her symptoms. She states that she thought about it and felt that she does ultimately need physical therapy to get stronger so that she can live at home. She denies any acute symptoms such as fever, chills, chest pain, shortness of breath, abdominal pain, nausea, or vomiting. She was recently hospitalized on 06/22/2022 due to an JANA and poor living conditions. [facility] <THEA Lozano - Last Filed: 06/26/22 19:34> [facility] Medical History Chronic acquired lymphedema CKD (chronic kidney disease), stage III Gout HLD (hyperlipidemia) Hypertension Morbid obesity Home Medications allopurinol 300 mg tablet 300 mg PO DAILY 08/27/21 [History Last Taken Unknown] atorvastatin 40 mg tablet 40 mg PO QHS 08/27/21 [History Last Taken Unknown] carvedilol 25 mg tablet 25 mg PO BID 08/27/21 [History Last Taken Unknown] citalopram 20 mg tablet 20 mg PO DAILY 08/27/21 [History Last Taken Unknown] lisinopril 40 mg tablet 40 mg PO DAILY 08/27/21 [History Last Taken Unknown] doxycycline hyclate 100 mg capsule 100 mg PO BID 5 days #10 caps 06/25/22 [Rx Last Taken Unknown] Allergy/AdvReac Type Severity Reaction Status Date / Time No Known Allergies Allergy Verified 06/25/22 21:37 Family History Mother Non-Hodgkins lymphoma Surgical History (Updated 06/26/22 @ 20:56 by Cris Mckenzie) History of hernia repair History of total left knee replacement Social History household members: none housing: other details: Per EMS unkempt and unsafe living situation. Smoking Status: Never smoker alcohol intake: current alcohol intake frequency: a few times a month Alcohol type: beer substance use type: does not use ROS <THEA Lozano - Last Filed: 06/26/22 19:34> ROS ED Constitutional Constitutional ED: Denies chills or fever(s) Eyes Eyes: Denies blurry vision or change in vision Cardiovascular Cardiovascular: Denies chest pain or palpitations Respiratory/Chest Respiratory/Chest: Denies cough or dyspnea Gastrointestinal Gastrointestinal: Denies abdominal pain, constipation, diarrhea, nausea or vomiting Genitourinary Genitourinary ED: Denies dysuria, hematuria or urinary urgency Musculoskeletal Musculoskeletal: Denies arthralgias, back pain, myalgias or neck pain Integumentary Denies abscess, Abrasions or rash Neurologic Neurologic: Denies confusion, dizziness or paresthesias Psychiatric Psychiatric: Denies anxiety, depression, suicidal ideation or suicidal thoughts Allergic/Immunologic Allergic/Immunologic ED: Denies lip swelling, mouth swelling or urticaria EXAM <THEA Lozano - Last Filed: 06/26/22 19:34> Physical Exam Const Vital Signs: 06/26/22 14:27 06/26/22 14:45 Temperature 97.0 F L Temperature Source Temporal Pulse Rate 79 Respiratory Rate 18 Respiratory Effort Normal Non-Labored Respiratory Pattern Normal Blood Pressure 132/91 H Blood Pressure Mean 104 Pulse Ox 95 Oxygen Delivery Method Room Air Positive well nourished, well developed and no apparent distress General Appearance ED: well developed HEENT Reports normocephalic and head/scalp atraumatic Mouth ED: Yes moist mucous membranes normal Eyes PERRL and EOMs intact bilaterally Neck full ROM and supple Chest Wall inspection of chest normal Resp normal respiratory effort and clear to auscultation bilaterally Cardio regular rate and regular rhythm GI soft to palpation, non-tender, non-distended and no masses Back/Spine normal ROM and normal to inspection Extremity full ROM Extremity Narrative: Blistering wound to the bottom of patient's right foot with cellulitic changes. DP pulses 2+ and equal bilaterally. Neuro oriented x3, CN's II-XII intact bilaterally, moves all extremities, no focal motor deficits and no sensory deficits noted Sensorium / Orientation: awake and alert Psych mental status grossly normal and thought process normal Skin no rashes or lesions noted and no wounds <Dr. Mahendra Pérez DO - Last Filed: 06/26/22 21:40> Physical Exam Const Vital Signs: 06/26/22 14:27 06/26/22 14:45 Temperature 97.0 F L Temperature Source Temporal Pulse Rate 79 Respiratory Rate 18 Respiratory Effort Normal Non-Labored Respiratory Pattern Normal Blood Pressure 132/91 H Blood Pressure Mean 104 Pulse Ox 95 Oxygen Delivery Method Room Air MDM <THEA Lozano - Last Filed: 06/26/22 19:34> [facility] Narrative Medical decision making narrative: Patient presenting today requesting to be admitted to a correction facility. She is well-appearing and in no acute distress. She states she is just unable to care for herself at home right now. She does have a wound to the bottom of her right foot with cellulitic changes. We have given her a dose of doxycycline here in the ED. She does have laboratory work performed less than 24 hours ago as she was here for dizziness but did not want to be admitted at that time. Hospitalist recommends on holding off on laboratory work until she gets to the floor. She has been given her at home medication. She will be admitted in stable condition for further treatment and eventual placement and is comfortable with plan. <Dr. Mahendra Pérez, - Last Filed: 06/26/22 21:40> [facility] Treatment and Re-Evaluation :: ED attending note: I evaluated the patient in conjunction with the POLINA. I agree with his/her statements and above findings. I have personally performed a face to face assessment of the patient and have reviewed the POLINA Note. I performed a substantive portion of the visit including all aspects of the following. I personally saw the patient performed chart review, physical exam, reviewed labs, imaging (if obtained), and formulated a treatment and management plan. Exam: Nursing triage notes reviewed, Vital signs reviewed Constitutional: please see [facility] HENT: MMM Eyes: Pupils equal round and reactive to light, Extraocular muscles intact Neck: No stridor, no JVD, full neck ROM Lungs: Clear to auscultation, No wheezing or rales. No increased work of breathing, no conversational dyspnea, no accessory muscle use, no nasal flaring. No respiratory distress noted Heart: Regular rate and rhythm, No murmurs, No rubs and No gallops, 2+ distal pulses (radial, femoral, posterior tibial) in all extremities Abdomen: Soft, there is no tenderness, rigidity, rebound or guarding, no obvious peritoneal signs, no palpable pulsatile abdominal masses, no auscultated abdominal bruit : No CVAT Extremities: No edema Neuro: No focal neurological deficits, cranial nerves II through XII intact, 5/5 strength in all extremities. Intact sensation to light touch in all extremities, 2+ reflexes bilateral patella tendons. Skin: Erythema noted to the sole of the right foot, there is a large blister, no crepitus or bullae noted MDM/plan: Chief Complaint: Placement External records reviewed: Seen yesterday for dizziness and unremarkable labs Factors affecting care: hyperlipidemia, hypertension Social determinants of health: Elderly, poor mobility, History obtained from others: The patient's daughter Shared decision making: I will have a discussion with the patient and or visitors regarding risk/benefits of further testing or admission. They will be made aware of of the risk/benefits inherent in this decision they will be given the opportunity to voice understanding. Consults: None Discharge Plan Dx/Rx/DC Orders Clinical Impression: Adult failure to thrive, Cellulitis of foot Disposition Disposition: Acute Care Hospital [facility] Discharge Date/Time: 06/26/22 20:08
--- NOTE | 2022-06-26 17:00 | CM.ED ---
Social Work SW called Faustino from [facility] to notify her of patient's return. Faustino has been involved with patient but patient has been unwilling to cooperate regarding home conditions and resources offered. EMS also expressed concerns over conditions in the home and cats present. Patient reports there are 6 cats in the home and 8 on the porch. SW confirmed with friend Lizzy, whom was present with patient, that the animals will be taken care of. Lizzy reports she notified the neighbors who agreed to take care of the cats while patient is away. Kimberly Hoffman DANCE COACH, FAMILY LAW ATTORNEY
--- NOTE | 2022-06-26 17:44 | PCM.HP.STD ---
HPI - General General Date of Admission: 06/26/22 Date of Service: 06/26/22 Chief Complaint: Inability to care for self, presyncope HPI Narrative LEAH TENORIO, is a 72 y/o F w/ PMHx: Morbid Obesity, Chronic BL LE Lymphedema, HTN, HLD, Gout, Anxiety and Depression, CKD stage III unclear subtype who presents to the [facility] ED on 06/26/2022 due to inability to care for herself and an episode of lightheadedness. She was just discharged from the hospital 06/25 after a 3-day admission for worsening right lower extremity edema and pain exacerbating her difficulty with caring for herself. Initially at that time her blood pressure was 232/96 and she also had an JANA and an elevated D-dimer. 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 She also did blister that grew Staph aureus and was discharged on doxycycline and that is subsequently complex MRSA. She Re-presented the ED as she went home and stood up and was lightheaded and sat down and then felt too weak to get up. In the ED work-up fairly unremarkable and despite her difficulty with walking and inability to care for self she was not agreeable to placement and insisted on discharge. She reports that she was unable to get a ride home and spent the night in the ED and today came to the realization that she cannot care for herself or walk due to her leg pain and swelling and she is agreeable to placement so hospitalist consulted. Went to evaluate at bedside and patient reports that her swelling and pain is the same but she realized when she had to move around that she was not able to do so very well independently. Denies fevers or any other new physical complaint. [facility] Medical History Chronic acquired lymphedema CKD (chronic kidney disease), stage III Gout HLD (hyperlipidemia) Hypertension Morbid obesity Home Medications allopurinol 300 mg tablet 300 mg PO DAILY 08/27/21 [History Last Taken Unknown] atorvastatin 40 mg tablet 40 mg PO QHS 08/27/21 [History Last Taken Unknown] carvedilol 25 mg tablet 25 mg PO BID 08/27/21 [History Last Taken Unknown] citalopram 20 mg tablet 20 mg PO DAILY 08/27/21 [History Last Taken Unknown] lisinopril 40 mg tablet 40 mg PO DAILY 08/27/21 [History Last Taken Unknown] doxycycline hyclate 100 mg capsule 100 mg PO BID 5 days #10 caps 06/25/22 [Rx Last Taken Unknown] Allergy/AdvReac Type Severity Reaction Status Date / Time No Known Allergies Allergy Verified 06/25/22 21:37 Family History Mother Non-Hodgkins lymphoma Surgical History History of total left knee replacement Social History household members: none housing: other details: Per EMS unkempt and unsafe living situation. Smoking Status: Never smoker alcohol intake: current alcohol intake frequency: a few times a month Alcohol type: beer substance use type: does not use ROS ROS Narrative General: Denies fever/chills HENT: Denies headache, denies stuffy nose, denies sore throat EYES: Denies changes in vision Resp: Denies cough, denies shortness of breath Cardiac: Denies chest pain GI: Denies abdominal pain, denies changes in bowel, denies nausea/vomiting : Denies changes in urination Extremity: Denies swelling MSK: [place]vid generally weak Neuro: Denies any numbness/tingling Heme: Denies any bleeding or bruising Skin: Right lower extremity swelling and erythema Psychiatric: No complaints voiced Vital Signs Vital Signs Vital Signs: 06/26/22 14:27 06/26/22 14:45 Temperature 97.0 F L Temperature Source Temporal Pulse Rate 79 Respiratory Rate 18 Respiratory Effort Normal Non-Labored Respiratory Pattern Normal Blood Pressure 132/91 H Blood Pressure Mean 104 Pulse Ox 95 Oxygen Delivery Method Room Air Weight Weight: 110.8 kg Body Mass Index (BMI) 43.2 Physical Exam Narrative General: Alert, oriented, no apparent distress HEENT: Atraumatic, normocephalic Eyes: Anicteric, normal conjunctiva, extraocular movements grossly intact Neck: Supple Respiratory: Clear to auscultation bilaterally, normal respiratory effort Cardiovascular: Regular rate and rhythm GI: Soft, nontender, nondistended Extremities: Right lower extremity edema bilaterally, right slightly greater than left Musculoskeletal: Moving all extremities Neuro: No overt focal neurological deficits Skin: Erythema of right lower extremity primarily ankle to foot, bottom of right foot with ulcer that had been lanced and poor hygiene on both feet, small blister add onto AM labs if possible instep of right foot as well, no purulent drainage, slight tenderness when palpating Psych: Cooperative Assessment & Plan Assessment/Plan (1) Adult failure to thrive: PLAN: Plan #Right lower extremity cellulitis and right foot blister -Cultured by wound care and grew MRSA -We will place her on Vanc -Cellulitis does appear worse around ankle and foot, will add Rocephin -We will also replace consult for wound care -We will consider podiatry consult in the future if needed -No vital or lab abnormalities that would suspect systemic infection so blood cultures not obtained -We will obtain ESR and CRP however -Foot x-ray in the ED without any gas or acute injury #Presyncope -[place] lightheaded when she went to stand up at home and had to sit down and then was generally weak -Appears somewhat hemoconcentrated with increase in all cell lines and bump in creatinine that does not meet criteria for JANA, will give gentle hydration -Monitor on telemetry -Suspect aspect of deconditioning -We will hold lisinopril #Severe right knee OA/Cho's cyst -Evaluated by Ortho 06/24 and no acute intervention necessary -Would ultimately benefit from knee replacement but patient does not want surgery at this time and can follow-up on a as needed basement #Failure to thrive -Is now agreeable to placement -PT/OT and case management consult #Morbid obesity -BMI 43.3 kg/m? -Complicates treatment, prognosis, outcomes -Recommend weight loss and lifestyle changes #DVT ppx: Lovenox subcu Leyla Kwok MD Time spent in the patient's overall evaluation,decision-making process, review of diagnostic data, adjustment of management, discussion with other providers, nursing nursing and ancillary staff involved in patient's care documentation, 60 minutes Charges/Coding Visit Charges Inpatient E&M: 50522 Init Hosp L2
[2022-06-26 18:14] VITALS: BP 139/77; PULSE 89; RESP 14; TEMP 36.4; O2SAT 97
[2022-06-26 18:39] LABS: Erythrocyte Sedimentation Rate 51 mm/hr (0-30)
[2022-06-26 20:23] VITALS: BMI 41.9
[2022-06-26 21:02] VITALS: BP 160/72; PULSE 70; RESP 16; TEMP 36.6; O2SAT 97
[2022-06-26] MEDS: 0.9% Normal Saline 1,000 ML 75 ML IV (21:47)
[2022-06-26] MEDS: Ceftriaxone 1 GM/50 ML BAG IV (21:47)
[2022-06-26] MEDS: 0.9% Saline Lock 10 ML Syringe IV (21:49)
[2022-06-26] MEDS: Acetaminophen 325 MG Tablet 650 MG PO (21:59)
[2022-06-26] MEDS: Atorvastatin Calcium 40 MG Tablet PO (22:00)
[2022-06-26] MEDS: Enoxaparin 40 MG/0.4 ML Syringe SC (22:00)
[2022-06-26 22:10] VITALS: O2SAT 97
--- NOTE | 2022-06-26 23:46 | PCM.RX.CS ---
Consult Type of Consult: New start Suspected Infection: Skin/Soft tissue - RLE Cellulitis Goal Trough: 15-20 mcg/mL Pharmacy Plan for Drug Dosing: NEW START IV VANCOMYCIN Consulting Physician: Dr. Kwok Indication: RLE Cellulitis Goal Trough: 15-20 SrCr: 1.02 (06/25/22) CrCl: 60.3 ml/min (AdjBW 74.4kg) Comments: Received Vancomycin 2000mg x1 @ 2247 06/26/22. Pt also on Ceftriaxone. Wound cx (+) MRSA. Vancomycin Dose: 1000mg Q12H to start @ 1100 06/27/22 Pending Level: Vancomycin trough @ 1030 06/28/22 Pharmacy Service will continue to monitor and adjust dosing as required. Labs to be done on [date and time ordered]: Vancomycin trough @ 1030 06/28/22
[2022-06-27 02:50] VITALS: BP 145/83; PULSE 67; RESP 16; TEMP 36.6; O2SAT 95
[2022-06-27 06:00] VITALS: BMI 42.2
[2022-06-27 06:17] LABS: Absolute Lymphocyte Count 1.06 X10^3/uL (0.83-4.51); Absolute Neutrophil Count 2.7 X10^3/uL (2.0-7.7); Basophil# 0.01 X10^3/uL; Basophil% 0.2 % (0-1); Eosinophil# 0.37 X10^3/uL; Eosinophils% 7.8 % (0-5); Hematocrit 29.7 % (37-47); Hemoglobin 9.7 g/dL (12.0-15.0); Lymphocyte # 1.06 X10^3/ul (0.83-4.51); Lymphocyte % 22.4 % (19-41); Mean Corp Hgb Conc 32.7 g/dL (32-36); Mean Corpuscular Hgb 31.7 pg (27.0-32.0); Mean Corpuscular Volume 97.1 fL (81-99); Mean Platelet Vol. 8.9 fl (6.2-12.0); Monocyte# 0.62 X10^3/uL; Monocyte% 13.1 % (0-10); NRBC Flagged by Analyzer 0 % (0-5); Neutrophil # 2.66 X10^3/uL (2.7-7.7); Neutrophil % 56.1 % (47-70); Platelet Count 253 K/mm3 (150-450); RBC Distribution Width CV 14.5 % (11.6-14.6); RBC Distribution Width SD 51.5 fl (35.1-43.9); Red Blood Count 3.06 M/mm3 (4.2-5.4); White Blood Count 4.7 K/mm3 (4.4-11.0)
[2022-06-27 07:11] LABS: ALB/GLOB Ratio 0.8 RATIO (0.9-2.4); AST(SGOT) 21 U/L (15-37); Alanine Aminotransfer ALT/SGPT 23 U/L (13-56); Albumin, Serum 2.6 g/dL (3.2-5.0); Alkaline Phosphatase 56 U/L (45-117); Anion Gap 5 (5-15); BUN 22 mg/dL (7-18); Calcium,Total 8.5 mg/dL (8.5-10.1); Chloride 113 mmol/L (98-107); Creatinine, Serum 0.85 mg/dL (0.55-1.02); EST Glomerular Filtration Rate 71 mL/min (>60); Est Glom Filt Rate - Afr Amer 85 mL/min (>60); Estimated Creatinine Clearance 50.94 ml/min; Globulin 3.1 g/dL (2.2-4.2); Glucose 97 mg/dL (74-106); Potassium 3.9 mmol/L (3.5-5.1); Protein, Total 5.7 g/dL (6.4-8.2); Sodium Level 142 mmol/L (136-145)
[2022-06-27 07:30] VITALS: O2SAT 93
[2022-06-27] MEDS: Enoxaparin 40 MG/0.4 ML Syringe SC (08:49)
[2022-06-27] MEDS: Ceftriaxone 1 GM/50 ML BAG IV (08:49)
[2022-06-27] MEDS: Acetaminophen 325 MG Tablet 650 MG PO (08:50)
[2022-06-27] MEDS: Carvedilol 25 MG Tablet PO (08:50)
[2022-06-27] MEDS: Citalopram 20 MG Tablet PO (08:50)
[2022-06-27] MEDS: Allopurinol 300 MG Tablet PO (08:50)
[2022-06-27 09:01] VITALS: BP 179/97; PULSE 71; RESP 18; TEMP 36.6; O2SAT 95
--- NOTE | 2022-06-27 09:55 | WOUNDNOTE ---
wound photo: right foot
--- NOTE | 2022-06-27 10:05 | PN.HOSP_ITS ---
Reason for Visit Reason for Visit: Diagnoses Adult failure to thrive (06/26/22) Subjective Subjective Feeling better today without any further presyncopal episodes. Feels like leg might be feeling slightly better Objective Data Objective Data Vital Signs: Vital Signs Temp Pulse Resp BP Pulse Ox O2 Del Method 97.9 F 71 18 179/97 H 95 Room Air 06/27/22 09:01 06/27/22 09:01 06/27/22 09:01 06/27/22 09:01 06/27/22 09:01 06/27/22 09:01 Oxygen Delivery Method Room Air Weight: 108.1 kg Body Mass Index (BMI) 42.2 Intake & Output: Intake and Output for Last 24 Hours 06/25/22 06/26/22 06/27/22 23:59 23:59 23:59 Intake Total 1196.25 / 1196.25 Balance 1196.25 / 1196.25 Lab / Micro Data Result Diagrams: 06/27/22 05:35 06/27/22 05:35 Labs: Laboratory Results - last 24 hr 06/26/22 18:06: ESR 51 H 06/26/22 18:06: C-React Prot Ext Range 21.20 H 06/27/22 05:35: WBC 4.7, RBC 3.06 L, Hgb 9.7 L, Hct 29.7 L, MCV 97.1, MCH 31.7, MCHC 32.7, RDW Std Deviation 51.5 H, RDW Coeff of Anu 14.5, Plt Count 253, MPV 8.9, Immature Gran % (Auto) 0.400, Neut % (Auto) 56.1, Lymph % (Auto) 22.4, Routt % (Auto) 13.1 H, Eos % (Auto) 7.8 H, Baso % (Auto) 0.2, Absolute Neuts (auto) 2.7, Absolute Lymphs (auto) 1.06, Nucleated RBC % 0 06/27/22 05:35: Sodium 142, Potassium 3.9, Chloride 113 H, Carbon Dioxide 24.0, Anion Gap 5, BUN 22 H, Creatinine 0.85, Estim Creat Clear Calc 50.94, Est GFR (MDRD) Af Amer 85, Est GFR (MDRD) Non-Af 71, BUN/Creatinine Ratio 26.0 H, Glucose 97, Calcium 8.5, Total Bilirubin 0.60, AST 21, ALT 23, Alkaline Phosphatase 56, Total Protein 5.7 L, Albumin 2.6 L, Globulin 3.1, Albumin/Globulin Ratio 0.8 L Physical Exam Narrative General: Alert, oriented, no apparent distress HEENT: Atraumatic, normocephalic Eyes: Anicteric, normal conjunctiva, extraocular movements grossly intact Neck: Supple Respiratory: Clear to auscultation bilaterally, normal respiratory effort Cardiovascular: Regular rate and rhythm GI: Soft, nontender, nondistended Extremities: Right lower extremity edema bilaterally, right slightly greater than left Musculoskeletal: Moving all extremities Neuro: No overt focal neurological deficits Skin: Erythema does seem to be somewhat better Psych: Cooperative Assessment & Plan Assessment/Plan (1) Adult failure to thrive: PLAN: Plan #Right lower extremity cellulitis and right foot blister -Cultured by wound care and grew MRSA -We will place her on Vanc -Cellulitis does appear worse around ankle and foot, will add Rocephin -We will also replace consult for wound care -We will consider podiatry consult in the future if needed -No vital or lab abnormalities that would suspect systemic infection so blood cultures not obtained -We will obtain ESR and CRP however -Foot x-ray in the ED without any gas or acute injury -06/27: ESR to go up some but CRP coming down no other systemic signs symptoms of infection, leg improving with addition of Keflex and continued vancomycin. 1 placement obtained we will switch to oral antibiotics. Continue local wound care #Presyncope -[place] lightheaded when she went to stand up at home and had to sit down and then was generally weak -Appears somewhat hemoconcentrated with increase in all cell lines and bump in creatinine that does not meet criteria for JANA, will give gentle hydration -Monitor on telemetry -Suspect aspect of deconditioning -We will hold lisinopril -06/27: No further episodes, appears euvolemic and kidney function stable, elevated BP so will resume lisinopril #HTN -Coreg, lisinopril resumed 06/27 #Severe right knee OA/Cho's cyst -Evaluated by Ortho 06/24 and no acute intervention necessary -Would ultimately benefit from knee replacement but patient does not want [place]al at this time and can follow-up on a as needed basement #Failure to thrive -Is now agreeable to placement -PT/OT and case management consult #Morbid obesity -BMI 43.3 kg/m? -Complicates treatment, prognosis, outcomes -Recommend weight loss and lifestyle changes #DVT ppx: Lovenox subcu Leyla Kwok MD Time spent in the patient's overall evaluation,decision-making process, review of diagnostic data, adjustment of management, discussion with other providers, nursing nursing and ancillary staff involved in patient's care documentation, 30 minutes Charges/Coding Visit Charges Inpatient E&M: 74297 Subs Hosp L2
[2022-06-27 10:40] VITALS: BP 159/74
[2022-06-27] MEDS: Lisinopril 20 MG Tablet PO (10:41)
--- NOTE | 2022-06-27 11:03 | CASEMGMT ---
Addendum entered by Rae Ortega 06/27/22 11:33: TCU is unable to accept pt. SW met with pt and updated. Pt next choices are 1. [facility] 2. [facility]. Sondra d/ngoc surveyor's assistant updated and to send referral. SHEREE Noe Original Note: Social Work SW met with pt and introduced self and role of SW. Discussed admission with pt and need for SNF placement. Pt initially states she would not go to a alf but wanted assisted living. SW informed pt that AL is available but pt would be private pay. Pt denies this. SW discussed SNF and that short term placement would be covered by her insurance for rehabilitation with plan to return home. SW updated pt and a list of SNF providers including quality and resource use data and consistent with the patient?s preferred geographic region, medical needs, and insurance network were provided from the [facility] Guide. Pt stating that she would prefer TCU. Referral made to TCU and will await determination of acceptance. SHEREE Noe
--- NOTE | 2022-06-27 11:41 | CASEMGMT ---
Discharge Planning New referral sent to [facility] via [facility]. Sondra Wills
[2022-06-27] MEDS: Vancomycin IV 1,000 MG/200 ML BAG 200 MG IV (12:21)
--- NOTE | 2022-06-27 13:15 | CASEMGMT ---
Discharge Planning [facility] accepted patient and have begun pre-cert. Therapy evals sent via [employer]. Sondra Wills
--- NOTE | 2022-06-27 13:33 | CASEMGMT ---
BRANDON CM in to discuss ARTEAGA form with patient. RN CM explained ARTEAGA form, patient voiced understanding. Pt signed form and filed in chart. Pt provided with a copy of signed ARTEAGA form. Patient had no further questions or concerns at this time.
--- NOTE | 2022-06-27 14:57 | TREXTCAR_ITS ---
Diet Diet Order/Speech Therapy: 06/26/22 20:22 Diet: Regular - General Food consistency:: Regular Liquid Consistency:: Regular/Thin Routine Orders/Code Status Suppository Type: Dulcolax 10mg Suppository Frequency: Daily PRN Routine Lab Work: BMP (3 days) Code Status: Full Code Wound(s) bottom of Rt foot: Wound Type: blister Dressing Change: well padded dressing Therapies Physical Therapy: Eval and Treat Occupational Therapy: Eval and Treat Problem/Diagnosis (1) Adult failure to thrive: Status: Acute Code(s): R62.7 - Adult failure to thrive Plan #Right lower extremity cellulitis and right foot blister w/ MRSA #Lightheaded episode x1, resolved with small fluid bolus #HTN #Severe right knee OA/Cho's cyst #Failure to thrive #Morbid obesity LEAH TENORIO, is a 72 y/o F w/ PMHx: Morbid Obesity, Chronic BL LE Lymphedema, HTN, HLD, Gout, Anxiety and Depression, CKD stage III unclear subtype who presents to the [facility] ED on 06/26/2022 due to inability to care for herself and an episode of lightheadedness.? She was just discharged from the hospital 06/25 after a 3-day admission for worsening right lower extremity edema and pain exacerbating her difficulty with caring for herself.? Initially at that time her blood pressure was 232/96 and she also had an JANA and an elevated D-dimer.? She is found to have a Cho's cyst, severe OA, some swelling anterior to her knee and orthopedic surgery consulted but no acute intervention that would benefit from a knee replacement in the future but she has expressed that she does not wish to have surgery at this time.? She also did blister that grew Staph aureus and was discharged on doxycycline and that is subsequently complex MRSA.? She Re-presented the ED as she went home and stood up and was lightheaded and sat down and then felt too weak to get up.? In the ED work-up fairly unremarkable and despite her difficulty with walking and inability to care for self she was not agreeable to placement and insisted on discharge.? She reports that she was unable to get a ride home and spent the night in the ED and came to the realization that she cannot care for herself or walk due to her leg pain and swelling and is agreeable to placement. Her wound culture came back as MRSA so she was placed on Vanco and due to some additional lower extremity cellulitis Rocephin was added and she improved. She had no further episodes of lightheadedness. Did have a downtrend in hemoglobin in a.m. hemoglobin compared to the one in the ED however it was 9.7 on 06/27 none 06/25 at 4 AM it was 9.6, do not feel she has any kind of acute bleed and suspect that the hemoglobin the evening of 06/25 was the outlier. Was feeling better on day of discharge accepted to nursing facility. Discharge instructions as followed: -It is recommended that you follow-up with the orthopedic physician in the office upon discharge if you decide on any intervention for your knee osteoarthritis.? Contact information provided -You were noted to have a blister on your foot that grew MRSA and additional cellulitis on your ankle, you will be discharged on doxycycline 100 BID for 5 days and keflex 500 QID for 5 more days. -You were noted to be somewhat dehydrated on admission, would recommend holding your furosemide.? You will likely need to restart this in the future but would recommend lab work (BMP) and 3 to 4 days through primary care physician's office to monitor your kidney function.? Please call our office upon discharge to obtain lab work order. -Weigh yourself every day. A sudden weight gain can mean you are retaining fluid. Weigh yourself at the same time of day and in the same kind of clothes. Ideally, weigh yourself first thing in the morning after you empty your bladder, but before you eat breakfast. -Please call your physician if your weight goes up by more than 2 pounds in 1 day or 5 pounds in 1 week. This can be a sign that you are retaining more fluid than you should be -Please call your primary care provider's office upon discharge to schedule a hospital follow up within 1 week. -For any concerning signs or symptoms please call 911 or proceed to the nearest emergency department Allergies/Procedures Done in Hospital Allergies No Known Allergies Allergy (Verified 06/25/22 21:37) Type of Care/Length of Stay Estimated LOS: Convalescent Care Less Than 30 days Type of Care Needed: Skilled Rehab Potential: Fair Prognosis: Fair Additional Orders/Day of Discharge Day of Discharge: 06/27/22 Discharge Plan Admission Admit Date/Time: 06/26/22 17:30 Primary Reason for Your Visit: Difficulty with ambulation Attending Provider: Leyla Kwok Primary Care Provider: [facility] Elvie Lau Instructions Patient Instructions: ED Fall Prevention Additional Instructions / Restrictions: DISCHARGE INSTRUCTIONS PLEASE READ *Please take this with you to your next doctors appointment* -It is recommended that you follow-up with the orthopedic physician in the office upon discharge if you decide on any intervention for your knee osteoarthritis.? Contact information provided -You were noted to have a blister on your foot that grew MRSA and additional cellulitis on your ankle, you will be discharged on doxycycline 100 BID for 5 days and keflex 500 QID for 5 more days. -You were noted to be somewhat dehydrated on admission, would recommend holding your furosemide.? You will likely need to restart this in the future but would recommend lab work (BMP) and 3 to 4 days through primary care physician's office to monitor your kidney function.? Please call our office upon discharge to obtain lab work order. -Weigh yourself every day. A sudden weight gain can mean you are retaining fluid. Weigh yourself at the same time of day and in the same kind of clothes. Ideally, weigh yourself first thing in the morning after you empty your bladder, but before you eat breakfast. -Please call your physician if your weight goes up by more than 2 pounds in 1 day or 5 pounds in 1 week. This can be a sign that you are retaining more fluid than you should be -Please call your primary care provider's office upon discharge to schedule a hospital follow up within 1 week. -For any concerning signs or symptoms please call 911 or proceed to the nearest emergency department Discharge Orders/Prescriptions Prescriptions: New cephalexin 500 mg capsule 500 mg PO Q6H 5 Days Qty: 21 0RF Continued atorvastatin 40 mg Tablet 40 mg PO QHS carvedilol 25 mg Tablet 25 mg PO BID Rx Instructions: must administer with a meal/food citalopram 20 mg Tablet 20 mg PO DAILY allopurinol 300 mg Tablet 300 mg PO DAILY lisinopril 40 mg Tablet 40 mg PO DAILY doxycycline hyclate 100 mg capsule 100 mg PO BID 5 Days Qty: 10 0RF Referrals / Follow Up: [facility] Elvie Lau [Primary Care Provider] - Within 1 Week Disposition Disposition (needs filled in before D/C Order can be placed): [facility]
--- NOTE | 2022-06-27 15:00 | CASEMGMT ---
Social Work Precert has been obtained for pt to go to [facility]. Physician updated and plans to discharge pt today. SW met with pt and she is agreeable to d/c to [facility]. PASRR completed in [facility]. VM left for [place] at [facility] and updated on disposition. Disposition: [facility], skilled level of care SHEREE Noe
--- NOTE | 2022-06-27 15:06 | PCM.DC.SUM ---
Providers Date of Admission: 06/26/22 Date of Discharge: 06/27/22 Primary Care Physician: [facility] Consultations 06/26/22 20:22 Consult: Onc/Wound/medicaid collection specialist Routine Comment: Reason for Consult:: BLE lymphedema and R foot wound Reason For Visit: PRESYNCOPE, failure to thrive Diagnosis Discharge Diagnosis (1) Adult failure to thrive: Status: Acute Code(s): R62.7 - Adult failure to thrive Plan #Right lower extremity cellulitis and right foot blister w/ MRSA #Lightheaded episode x1, resolved with small fluid bolus #HTN #Severe right knee OA/Cho's cyst #Failure to thrive #Morbid obesity Medications at Discharge Home Medications allopurinol 300 mg tablet 300 mg PO DAILY 08/27/21 atorvastatin 40 mg tablet 40 mg PO QHS 08/27/21 carvedilol 25 mg tablet 25 mg PO BID 08/27/21 citalopram 20 mg tablet 20 mg PO DAILY 08/27/21 lisinopril 40 mg tablet 40 mg PO DAILY 08/27/21 doxycycline hyclate 100 mg capsule 100 mg PO BID 5 days #10 caps 06/25/22 cephalexin 500 mg capsule 500 mg PO Q6H 5 days #21 caps 06/27/22 Hospital Course Summary of Care Provided Minutes Spent on Discharge: 31 Hospital Course: LEAH TENORIO, is a 72 y/o F w/ PMHx: Morbid Obesity, Chronic BL LE Lymphedema, HTN, HLD, Gout, Anxiety and Depression, CKD stage III unclear subtype who presents to the [facility] ED on 06/26/2022 due to inability to care for herself and an episode of lightheadedness.? She was just discharged from the hospital 06/25 after a 3-day admission for worsening right lower extremity edema and pain exacerbating her difficulty with caring for herself.? Initially at that time her blood pressure was 232/96 and she also had an JANA and an elevated D-dimer.? She is found to have a Cho's cyst, severe OA, some swelling anterior to her knee and orthopedic surgery consulted but no acute intervention that would benefit from a knee replacement in the future but she has expressed that she does not wish to have surgery at this time.? She also did blister that grew Staph aureus and was discharged on doxycycline and that is subsequently complex MRSA.? She Re-presented the ED as she went home and stood up and was lightheaded and sat down and then felt too weak to get up.? In the ED work-up fairly unremarkable and despite her difficulty with walking and inability to care for self she was not agreeable to placement and insisted on discharge.? She reports that she was unable to get a ride home and spent the night in the ED and came to the realization that she cannot care for herself or walk due to her leg pain and swelling and is agreeable to placement. Her wound culture came back as MRSA so she was placed on Vanco and due to some additional lower extremity cellulitis Rocephin was added and she improved. She had no further episodes of lightheadedness. Did have a downtrend in hemoglobin in a.m. hemoglobin compared to the one in the ED however it was 9.7 on 06/27 none 06/25 at 4 AM it was 9.6, do not feel she has any kind of acute bleed and suspect that the hemoglobin the evening of 06/25 was the outlier. Was feeling better on day of discharge accepted to nursing facility. Discharge instructions as followed: -It is recommended that you follow-up with the orthopedic physician in the office upon discharge if you decide on any intervention for your knee osteoarthritis.? Contact information provided -You were noted to have a blister on your foot that grew MRSA and additional cellulitis on your ankle, you will be discharged on doxycycline 100 BID for 5 days and keflex 500 QID for 5 more days. -You were noted to be somewhat dehydrated on admission, would recommend holding your furosemide.? You will likely need to restart this in the future but would recommend lab work (BMP) and 3 to 4 days through primary care physician's office to monitor your kidney function.? Please call our office upon discharge to obtain lab work order. -Weigh yourself every day. A sudden weight gain can mean you are retaining fluid. Weigh yourself at the same time of day and in the same kind of clothes. Ideally, weigh yourself first thing in the morning after you empty your bladder, but before you eat breakfast. -Please call your physician if your weight goes up by more than 2 pounds in 1 day or 5 pounds in 1 week. This can be a sign that you are retaining more fluid than you should be -Please call your primary care provider's office upon discharge to schedule a hospital follow up within 1 week. -For any concerning signs or symptoms please call 911 or proceed to the nearest emergency department Physical Exam Narrative General: Alert, oriented, no apparent distress HEENT: Atraumatic, normocephalic Eyes: Anicteric, normal conjunctiva, extraocular movements grossly intact Neck: Supple Respiratory: Clear to auscultation bilaterally, normal respiratory effort Cardiovascular: Regular rate and rhythm GI: Soft, nontender, nondistended Extremities: Right lower extremity edema bilaterally, right slightly greater than left Musculoskeletal: Moving all extremities Neuro: No overt focal neurological deficits Skin: Erythema does seem to be somewhat better Psych: Cooperative Weight / BMI Weight Weight: 108.1 kg Body Mass Index (BMI) 42.2 ABG / Lab / Microbiology Data Result Diagrams: 06/27/22 05:35 06/27/22 05:35 Laboratory: Laboratory Results - last 24 hr 06/26/22 18:06: ESR 51 H 06/26/22 18:06: C-React Prot Ext Range 21.20 H 06/27/22 05:35: WBC 4.7, RBC 3.06 L, Hgb 9.7 L, Hct 29.7 L, MCV 97.1, MCH 31.7, MCHC 32.7, RDW Std Deviation 51.5 H, RDW Coeff of Anu 14.5, Plt Count 253, MPV 8.9, Immature Gran % (Auto) 0.400, Neut % (Auto) 56.1, Lymph % (Auto) 22.4, Ray % (Auto) 13.1 H, Eos % (Auto) 7.8 H, Baso % (Auto) 0.2, Absolute Neuts (auto) 2.7, Absolute Lymphs (auto) 1.06, Nucleated RBC % 0 06/27/22 05:35: Sodium 142, Potassium 3.9, Chloride 113 H, Carbon Dioxide 24.0, Anion Gap 5, BUN 22 H, Creatinine 0.85, Estim Creat Clear Calc 50.94, Est GFR (MDRD) Af Amer 85, Est GFR (MDRD) Non-Af 71, BUN/Creatinine Ratio 26.0 H, Glucose 97, Calcium 8.5, Total Bilirubin 0.60, AST 21, ALT 23, Alkaline Phosphatase 56, Total Protein 5.7 L, Albumin 2.6 L, Globulin 3.1, Albumin/Globulin Ratio 0.8 L Meaningful Use Info Meaningful Use Diagnoses (Choose all that apply): None applicable Discharge Plan Admission Admit Date/Time: 06/26/22 17:30 Primary Reason for Your Visit: Difficulty with ambulation Attending Provider: Leyla Kwok Primary Care Provider: [facility] Elvie Lau Instructions Patient Instructions: ED Fall Prevention Additional Instructions / Restrictions: DISCHARGE INSTRUCTIONS PLEASE READ *Please take this with you to your next doctors appointment* -It is recommended that you follow-up with the orthopedic physician in the office upon discharge if you decide on any intervention for your knee osteoarthritis.? Contact information provided -You were noted to have a blister on your foot that grew MRSA and additional cellulitis on your ankle, you will be discharged on doxycycline 100 BID for 5 days and keflex 500 QID for 5 more days. -You were noted to be somewhat dehydrated on admission, would recommend holding your furosemide.? You will likely need to restart this in the future but would recommend lab work (BMP) and 3 to 4 days through primary care physician's office to monitor your kidney function.? Please call our office upon discharge to obtain lab work order. -Weigh yourself every day. A sudden weight gain can mean you are retaining fluid. Weigh yourself at the same time of day and in the same kind of clothes. Ideally, weigh yourself first thing in the morning after you empty your bladder, but before you eat breakfast. -Please call your physician if your weight goes up by more than 2 pounds in 1 day or 5 pounds in 1 week. This can be a sign that you are retaining more fluid than you should be -Please call your primary care provider's office upon discharge to schedule a hospital follow up within 1 week. -For any concerning signs or symptoms please call 911 or proceed to the nearest emergency department Discharge Orders/Prescriptions Prescriptions: New cephalexin 500 mg capsule 500 mg PO Q6H 5 Days Qty: 21 0RF Continued atorvastatin 40 mg Tablet 40 mg PO QHS carvedilol 25 mg Tablet 25 mg PO BID Rx Instructions: must administer with a meal/food citalopram 20 mg Tablet 20 mg PO DAILY allopurinol 300 mg Tablet 300 mg PO DAILY lisinopril 40 mg Tablet 40 mg PO DAILY doxycycline hyclate 100 mg capsule 100 mg PO BID 5 Days Qty: 10 0RF [facility]Primary Care Provider[facility] - Within 1 Week Disposition Disposition (needs filled in before D/C Order can be placed): Assisted Facility Charges/Coding Visit Charges Inpatient E&M: 86955 Disch Hosp >30min
--- NOTE | 2022-06-27 15:28 | CASEMGMT ---
Discharge Planning Discharge orders, signed med list, and grain picker time sent to [facility] Transport set up for 5p. Nursing and SW notified. Sondra Wills
[2022-06-27 15:36] VITALS: BP 133/76; PULSE 71; RESP 18; TEMP 36.6; O2SAT 98
--- NOTE | 2022-06-27 16:15 | CASEMGMT ---
Discharge Planning Passr & Review Results sent to [facility] via [employer]. Sondra Wills
== END 2022-06-27 18:46 ==
LOC: ED 16:38 → MS3 19:21
PROVIDERS: Admitting Provider Internal Medicine; Emergency Provider Emergency Medicine; Visit Provider Internal Medicine
DX: L03.115 Cellulitis of right lower limb (principal); Z68.41 Body mass index [BMI] 40.0-44.9, adult; E66.01 Morbid (severe) obesity due to excess calories; N18.30 Chronic kidney disease, stage 3 unspecified; R55 Syncope and collapse; M10.9 Gout, unspecified; R62.7 Adult failure to thrive; E78.5 Hyperlipidemia, unspecified; I12.9 Hypertensive chronic kidney disease with stage 1 through stage 4 chronic kidney disease, or unspecified chronic kidney disease; M17.10 Unilateral primary osteoarthritis, unspecified knee; S90.821A Blister (nonthermal), right foot, initial encounter; B95.62 Methicillin resistant Staphylococcus aureus infection as the cause of diseases classified elsewhere; R42 Dizziness and giddiness; F41.9 Anxiety disorder, unspecified; Z79.899 Other long term (current) drug therapy; F32.A Depression, unspecified; X58.XXXA Exposure to other specified factors, initial encounter; I89.0 Lymphedema, not elsewhere classified; M71.21 Synovial cyst of popliteal space [Baker], right knee
CPT/HCPCS: 36415; 80053; 85025; 85652; 86140; 87811; 94668; 96361; 96365; 96366; 96367; 96372; 97162; 97166; 99221; 99252; 99285; J7030; J7040; A4216; G0378; G0463

== ENCOUNTER 2022-06-29 22:53 | Emergency (ER) | payer MEDICARE, SELFPAY ==
[2022-06-29 22:53] VITALS: BP 182/110; PULSE 76; RESP 20; TEMP 36.9; O2SAT 93; BMI 41.7
--- NOTE | 2022-06-29 23:09 | EKG12_ITS ---
Test Reason : CP Blood Pressure : / mmHG Vent. Rate : 075 BPM Atrial Rate : 075 BPM P-R Int : 170 ms QRS Dur : 080 ms QT Int : 384 ms P-R-T Axes : 054 014 074 degrees QTc Int : 428 ms Normal sinus rhythm Normal ECG Confirmed by ANALIA PARKS, LIZABETH ([id number]), editor magazine FELIBERTO WALTON ([id number]) on 07/01/2022 8:18:52 AM Referred By: BB Confirmed By:LIZABETH HELMS MD
[2022-06-29 23:12] VITALS: PULSE 74; RESP 19
--- NOTE | 2022-06-29 23:12 | EDS_ITS ---
HPI History of Present Illness Chief Complaint: Shortness of Breath Informant: patient Onset/Context/Timing Onset: Today Context: gradual and onset Timing: Waxes and wanes Quality: Positive for Wheezing Current Severity: Mild Maximum Severity: Moderate Worsened by: Nothing Relieved by: Nothing Associated Symptoms Negative for cough Chest Pain: Positive for - (One episode of discomfort left chest nonradiating, earlier this afternoon over 6 hours ago from now, lasted somewhere between 30-60 minutes) Narrative Narrative: Patient presents 11 PM from detention where she is currently at temporarily for rehab due to FTT and a wound on her right foot that she states is healing, she states she felt like she was getting a cold today because she was having some nasal congestion, sneezing, and a runny nose, followed by wheezing that has basically been there all day, not severely, she states she has had wheezing like this when she has had colds in the past, but she does not have a known history of asthma, COPD, CHF, or any other heart or lung conditions that she is aware of. She is very with it and can provide an excellent history. She states she had some discomfort in her left chest earlier in the afternoon that lasted less than an hour. It did not return and she does not have it now. She has had no cough or fevers or chills or any new swelling in her legs, nor does she have any orthopnea today. When asked why she did not come to the ER earlier, she states I really did not think any of this was a big deal, it was not my choice to be sent here, and the reason I am here late is because the nurses just now checked on me. [facility] Medical History Chronic acquired lymphedema CKD (chronic kidney disease), stage III Gout HLD (hyperlipidemia) Hypertension Morbid obesity Home Medications allopurinol 300 mg tablet 300 mg PO DAILY 08/27/21 [History Last Taken Unknown] atorvastatin 40 mg tablet 40 mg PO QHS 08/27/21 [History Last Taken Unknown] carvedilol 25 mg tablet 25 mg PO BID 08/27/21 [History Last Taken Unknown] citalopram 20 mg tablet 20 mg PO DAILY 08/27/21 [History Last Taken Unknown] lisinopril 40 mg tablet 40 mg PO DAILY 08/27/21 [History Last Taken Unknown] doxycycline hyclate 100 mg capsule 100 mg PO BID 5 days #10 caps 06/25/22 [Rx Last Taken Unknown] cephalexin 500 mg capsule 500 mg PO Q6H 5 days #21 caps 06/27/22 [Rx Last Taken Unknown] albuterol sulfate 2.5 mg/3 mL (0.083 %) solution for nebulization 2.5 mg (3 mL) inhalation Q4H PRN shortness of breath or wheezing #25 vials 06/30/22 [Rx Last Taken Unknown] Allergy/AdvReac Type Severity Reaction Status Date / Time No Known Allergies Allergy Verified 06/25/22 21:37 Family History Mother Non-Hodgkins lymphoma Surgical History (Updated 06/26/22 @ 20:56 by Cris Mckenzie) History of hernia repair History of total left knee replacement Social History household members: none housing: other details: Per EMS unkempt and unsafe living situation. Smoking Status: Never smoker alcohol intake: current alcohol intake frequency: a few times a month Alcohol type: beer substance use type: does not use ROS ROS ED Constitutional Constitutional ED: Denies chills or fever(s) Eyes Eyes: Denies change in vision or diplopia ENT ENT ED: Reports as per HPI, nasal congestion and rhinorrhea; Denies ear pain or sore throat Cardiovascular Cardiovascular: Reports chest pain; Denies palpitations or racing heartbeat Respiratory/Chest Respiratory/Chest: Reports dyspnea; Denies cough Gastrointestinal Gastrointestinal: Denies abdominal pain, diarrhea, nausea or vomiting Genitourinary Genitourinary ED: Denies dysuria or hematuria Musculoskeletal Musculoskeletal: Denies back pain or neck pain Integumentary Reports wounds; Denies abscess or rash Neurologic Neurologic: Denies headache(s), paresthesias or weakness Psychiatric Psychiatric: Denies anxiety or suicidal thoughts EXAM Physical Exam Const Vital Signs: 06/29/22 22:53 06/29/22 23:12 06/29/22 23:29 Temperature 98.4 F Temperature Source Temporal Pulse Rate 76 74 Respiratory Rate 20 H 19 H Respiratory Effort Normal Non-Labored Respiratory Depth Normal Respiratory Pattern Normal Blood Pressure 182/110 H Blood Pressure Mean 134 Pulse Ox 93 Oxygen Delivery Method Room Air Room Air Positive well nourished and well developed General Appearance ED: well developed and NAD HEENT Reports moist mucous membranes normocephalic and atraumatic Eyes PERRL and EOMs intact bilaterally Neck full ROM, no lymphadenopathy, supple and no JVD Resp normal respiratory effort Resp Narrative: Expiratory wheezes throughout all lung bray, symmetric with midline trachea and no other adventitious breath sounds heard. Effort and Inspection: able to speak in complete sentences Cardio regular rate, regular rhythm and no murmurs Rate: Negative for tachycardic GI non-tender and non-distended Auscultation: normoactive bowel sounds Palpation: soft Back/Spine no CVA tenderness General Back: other FROM Extremity normal to inspection General Extremety ED: Yes edema; Negative for pulses abnormal or tenderness General Extremity: edema bilateral lower extremity Details: trace; Negative for pulses abnormal Neuro oriented x3, CN's II-XII intact bilaterally and no sensory deficits noted Sensorium / Orientation: awake and alert Motor Exam: strength 5/5 throughout Psych mental status grossly normal Skin no rashes or lesions noted Skin Narrative: None right foot is wrapped and dressed, there is no erythema at the ankle or above or lymphangitis. MDM MDM MDM Narrative Medical decision making narrative: Patient with wheezing, significantly better after breathing treatments. Now breathing normally, on reexamination wheezing is completely resolved, she is not hypoxic. I do not think she needs to be evaluated for a pulmonary embolus given all of this. She states this is happened before but does not have COPD or asthma. Her work-up was reviewed, essentially argues against cardiac etiology, 2 view chest x-ray my interpretation negative for pneumonia or CHF, radiology in agreement. Given all of this, I do not think she needs to be admitted. Her enzymes are negative her EKG is normal, and the chest discomfort was unlikely to have been cardiac. I am going to prescribe her albuterol treatments to be given as needed for recurrent wheezing/dyspnea, and get [facility]. She is comfortable with that plan. I do not think she needs any antibiotics right now. I would call this bronchitis with wheezing except she really has not been coughing. She may actually have some degree of reactive airway disease but given the infection she recently had and the ulcer that is healing on her foot I am going to hold off on putting her on any steroids. Lab Data Attestation: I reviewed the patient's lab results. Labs: Laboratory Results - last 24 hr 06/29/22 06/29/22 06/29/22 23:35 23:35 23:35 WBC 8.2 RBC 3.63 L Hgb 11.5 L Hct 35.2 L MCV 97.0 MCH 31.7 MCHC 32.7 RDW Std Deviation 50.5 H RDW Coeff of Anu 14.2 Plt Count 299 MPV 8.5 Immature Gran % (Auto) 0.500 Neut % (Auto) 78.7 H Lymph % (Auto) 8.4 L [place] % (Auto) 9.7 Eos % (Auto) 2.6 Baso % (Auto) 0.1 Absolute Neuts (auto) 6.5 Absolute Lymphs (auto) 0.69 L Nucleated RBC % 0 Sodium 141 Potassium 3.7 Chloride 105 Carbon Dioxide 28.0 Anion Gap 8 BUN 10 Creatinine 0.89 Estim Creat Clear Calc 48.65 Est GFR (MDRD) Af Amer 81 Est GFR (MDRD) Non-Af 67 BUN/Creatinine Ratio 11.2 Glucose 116 H Calcium 9.2 Troponin I High Sens 39 B-Natriuretic Peptide 202.9 H Radiography Diagnostic Testing: Clinical Impression(s) from Imaging Studies Chest X-Ray 06/29/22 23:55 IMPRESSION: No radiographic evidence of acute cardiopulmonary disease. Electronically Signed: Jenna Caldwell MD at 0:36 EDT Reading Location ID and State: [address] [place] [address] , Service support , Rhythm Strip Rhythm Strip: Sinus Rhythm Rate: 75 Ectopy: None EKG Initial EKG: Attestation: I personally reviewed and interpreted this EKG as follows: Interpretation: Sinus Rhythm and No Acute Injury Pattern Prior EKG tracings: available for review Prior: Unchanged Discharge Plan Triage Chief Complaint: Shortness of Breath ED Provider: Tony Reddy Dx/Rx/DC Orders Clinical Impression: Wheezing, URI (upper respiratory infection), Chest pain, non-cardiac Instructions: ED Bronchitis with Wheezing (Adult) Prescriptions: New albuterol sulfate 2.5 mg /3 mL (0.083 %) solution for nebulization 2.5 mg inhalation Q4H PRN (Reason: shortness of breath or wheezing) Qty: 25 0RF No Action atorvastatin 40 mg Tablet 40 mg PO QHS carvedilol 25 mg Tablet 25 mg PO BID Rx Instructions: must administer with a meal/food citalopram 20 mg Tablet 20 mg PO DAILY allopurinol 300 mg Tablet 300 mg PO DAILY lisinopril 40 mg Tablet 40 mg PO DAILY doxycycline hyclate 100 mg capsule 100 mg PO BID 5 Days Qty: 10 0RF cephalexin 500 mg capsule 500 mg PO Q6H 5 Days Qty: 21 0RF Primary Care Provider: Adrian Campbell Referrals: [facility] [Non-Staff] - Activity Restrictions/Additional Instructions: No evidence of pneumonia or CHF, no evidence of acute coronary syndrome or elevated heart enzymes, symptoms resolved after nebulizer treatment. Disposition Disposition: Residential Facility
[2022-06-29] MEDS: Ipratropium/Albuterol Sulfate 3 ML AMPUL.NEB INHALATION (23:13)
[2022-06-29] MEDS: Albuterol 2.5 MG/3 ML VIAL.NEB. INHALATION (23:14)
[2022-06-29 23:44] LABS: Absolute Lymphocyte Count 0.69 X10^3/uL (0.83-4.51); Absolute Neutrophil Count 6.5 X10^3/uL (2.0-7.7); Basophil# 0.01 X10^3/uL; Basophil% 0.1 % (0-1); Eosinophil# 0.21 X10^3/uL; Eosinophils% 2.6 % (0-5); Hematocrit 35.2 % (37-47); Hemoglobin 11.5 g/dL (12.0-15.0); Lymphocyte # 0.69 X10^3/ul (0.83-4.51); Lymphocyte % 8.4 % (19-41); Mean Corp Hgb Conc 32.7 g/dL (32-36); Mean Corpuscular Hgb 31.7 pg (27.0-32.0); Mean Platelet Vol. 8.5 fl (6.2-12.0); Monocyte% 9.7 % (0-10); NRBC Flagged by Analyzer 0 % (0-5); Neutrophil # 6.47 X10^3/uL (2.7-7.7); Neutrophil % 78.7 % (47-70); Platelet Count 299 K/mm3 (150-450); RBC Distribution Width CV 14.2 % (11.6-14.6); RBC Distribution Width SD 50.5 fl (35.1-43.9); Red Blood Count 3.63 M/mm3 (4.2-5.4); White Blood Count 8.2 K/mm3 (4.4-11.0)
--- NOTE | 2022-06-29 23:55 | RAD_ITS ---
STUDY: X-RAY CHEST REASON FOR EXAM: Female, 72 years old patient with shortness of breath and wheezing. TECHNIQUE: PA and lateral views of the chest. COMPARISON: August 27, 2021. FINDINGS: Cardiac monitoring leads are present. Lungs are expanded. There are prominent bronchovascular markings in both lungs. There is no demonstrated pleural abnormality. There is mild cardiac enlargement. Normal mediastinum and allie. There is prominence of the pulmonary hilar arteries without peripheral pulmonary vascular congestion. There is atherosclerotic calcification of the aortic arch with tortuosity. There are diffuse degenerative changes of the visualized thoracic spine. Normal visualized ribs, clavicles, and shoulders. There is no demonstrated abnormality of the visualized soft tissue structures of the upper abdomen. RAD/Chest PA and Lateral IMPRESSION: No radiographic evidence of acute cardiopulmonary disease. Electronically Signed: Jenna Caldwell MD at 0:36 EDT ,
[2022-06-29 23:59] LABS: Anion Gap 8 (5-15); BUN 10 mg/dL (7-18); BUN/Creat Ratio 11.2 RATIO (10-20); Calcium,Total 9.2 mg/dL (8.5-10.1); Chloride 105 mmol/L (98-107); Creatinine, Serum 0.89 mg/dL (0.55-1.02); EST Glomerular Filtration Rate 67 mL/min (>60); Est Glom Filt Rate - Afr Amer 81 mL/min (>60); Estimated Creatinine Clearance 48.65 ml/min; Glucose 116 mg/dL (74-106); Potassium 3.7 mmol/L (3.5-5.1); Sodium Level 141 mmol/L (136-145); Troponin-I HS 39 pg/mL (3.0-54.0)
[2022-06-30 00:05] LABS: BNP,B-Type NATRIURETIC PEPTIDE 202.9 pg/mL (0-100)
--- NOTE | 2022-06-30 01:28 | ED.RN ---
Called report to [facility], spoke with Zahra, Transport ETA [id number]
== END 2022-06-30 02:24 | disposition skilled nursing facility (03) ==
PROVIDERS: Emergency Provider Emergency Medicine; PCP Internal Medicine; Visit Provider Emergency Medicine
DX: J06.9 Acute upper respiratory infection, unspecified (principal); E66.01 Morbid (severe) obesity due to excess calories; Z68.41 Body mass index [BMI] 40.0-44.9, adult; N18.30 Chronic kidney disease, stage 3 unspecified; I12.9 Hypertensive chronic kidney disease with stage 1 through stage 4 chronic kidney disease, or unspecified chronic kidney disease; R07.89 Other chest pain; E78.5 Hyperlipidemia, unspecified; Z59.19 Other inadequate housing; Z79.899 Other long term (current) drug therapy
CPT/HCPCS: 71046; 80048; 83880; 84484; 85025; 93005; 94640; 99285; A4216

== ENCOUNTER 2024-03-08 12:01 | Emergency (ER) | payer MEDICARE, BC, SELFPAY ==
[2024-03-08] VITALS (9 sets, daily range): BP systolic 85–191; BP diastolic 44–114; PULSE 61–88; RESP 13–19; TEMP 36.8; O2SAT 95–98; BMI 35.8
--- NOTE | 2024-03-08 12:13 | EKG12_ITS ---
Test Reason : DIZZINESS/SYNCOPE Blood Pressure : */* mmHG Vent. Rate : 61 BPM Atrial Rate : 61 BPM P-R Int : 168 ms QRS Dur : 94 ms QT Int : 446 ms P-R-T Axes : 54 9 105 degrees QTcB Int : 448 ms Normal sinus rhythm Left ventricular hypertrophy with repolarization abnormality ( R in aVL ) Abnormal ECG Confirmed by EZ PARKS, KIMBERLEE ([id number]), society editor FELIBERTO WALTON ([id number]) on 03/15/2024 6:50:15 AM Referred By: Confirmed By: KIMBERLEE HUI MD
--- NOTE | 2024-03-08 12:14 | EDS_ITS ---
HPI History of Present Illness Chief Complaint: General Illness Detail of Chief Complaint: Not feeling well and syncope Informant: patient Narrative Narrative: Patient presents the emergency department complaint not feeling well since yeste rday. Patient states that she got lightheaded yesterday and then woke up on the floor and think she may have passed out. Today she had another episode where she felt very lightheaded but did not pass out. She just does not feel right. She denies fever or chills or sweats. She denies urinary symptoms. She denies vomiting or diarrhea. She states has been eating and drinking normally. Patient tells me she has had a history of hypertension normally and she stopped taking her medications about 3 weeks ago. She denies blood in her stool or black tarry stool. [facility] Medical History Chronic acquired lymphedema CKD (chronic kidney disease), stage III Gout HLD (hyperlipidemia) Hypertension Morbid obesity Home Medications ?Medication ?Instructions ?Recorded ?Last Taken ?Type allopurinol 300 mg tablet 300 mg PO DAILY 08/27/21 Unknown History atorvastatin 40 mg tablet 40 mg PO QHS 08/27/21 Unknown History carvedilol 25 mg tablet 25 mg PO BID 08/27/21 Unknown History citalopram 20 mg tablet 20 mg PO DAILY 08/27/21 Unknown History lisinopril 40 mg tablet 40 mg PO DAILY 08/27/21 Unknown History doxycycline hyclate 100 mg capsule 100 mg PO BID 5 days #10 caps 06/25/22 Unknown Rx cephalexin 500 mg capsule 500 mg PO Q6H 5 days #21 caps 06/27/22 Unknown Rx albuterol sulfate 2.5 mg/3 mL 2.5 mg (3 mL) inhalation Q4H PRN 06/30/22 Unknown Rx (0.083 %) solution for nebulization shortness of breath or wheezing #25 vials Allergy/AdvReac Type Severity Reaction Status Date / Time No Known Allergies Allergy Verified 06/25/22 21:37 Family History Mother Non-Hodgkins lymphoma Surgical History History of hernia repair History of total left knee replacement Social History household members: none housing: other details: Per EMS unkempt and unsafe living situation. Smoking Status: Never smoker alcohol intake: current alcohol intake frequency: a few times a month Alcohol type: beer substance use type: does not use ROS ROS ED Review of Systems ROS Unobtainable: other Constitutional Constitutional ED: Reports lethargy; Denies chills, fever(s), sweats or weight loss Eyes Eyes: Denies blurry vision, change in vision or diplopia ENT ENT ED: Denies rhinorrhea or sore throat Cardiovascular Cardiovascular: Denies chest pain, orthopnea or racing heartbeat Respiratory/Chest Respiratory/Chest: Reports dyspnea; Denies cough, dyspnea on exertion, orthopnea or sputum Gastrointestinal Gastrointestinal: Denies abdominal pain, diarrhea, nausea or vomiting Genitourinary Genitourinary ED: Denies dysuria, hematuria or urinary frequency Musculoskeletal Musculoskeletal: Denies arthralgias, back pain, myalgias or neck pain Integumentary Denies abscess, Abrasions or rash Neurologic Neurologic: Reports weakness and other Details: Syncope, dizziness ; Denies headache(s) Psychiatric Psychiatric: Denies anxiety, depression or suicidal thoughts Endocrine Endocrinology: Denies polydipsia, polyphagia or polyuria Hematologic/Lymphatic Hematologic/Lymphatic: Denies easy bleeding, easy bruising or lymphadenopathy Allergic/Immunologic Allergic/Immunologic ED: Denies mouth swelling, tongue swelling or urticaria EXAM Physical Exam Const Vital Signs: 03/08/24 12:02 03/08/24 12:08 03/08/24 12:15 Temperature 98.2 F Temperature Source Oral Pulse Rate 64 Pulse Rate [Lying] Pulse Rate [Sitting (for 1 minute prior to obtaining)] Pulse Rate [Standing (for 1 minute prior to obtaining)] Respiratory Rate 19 H Respiratory Effort Normal Non-Labored Normal Non-Labored Respiratory Pattern Normal Blood Pressure 87/44 L Blood Pressure [Lying] Blood Pressure [Sitting (for 1 minute prior to obtaining)] Blood Pressure [Standing (for 1 minute prior to obtaining)] Blood Pressure Mean 58 Blood Pressure Mean [Lying] Blood Pressure Mean [Sitting (for 1 minute prior to obtaining)] Blood Pressure Mean [Standing (for 1 minute prior to obtaining)] Pulse Ox 95 Oxygen Delivery Method Room Air Room Air 03/08/24 12:16 03/08/24 12:34 03/08/24 13:07 Temperature Temperature Source Pulse Rate 61 61 62 Pulse Rate [Lying] Pulse Rate [Sitting (for 1 minute prior to obtaining)] Pulse Rate [Standing (for 1 minute prior to obtaining)] Respiratory Rate 13 17 17 Respiratory Effort Respiratory Pattern Blood Pressure 85/47 L 115/54 L 124/57 H Blood Pressure [Lying] Blood Pressure [Sitting (for 1 minute prior to obtaining)] Blood Pressure [Standing (for 1 minute prior to obtaining)] Blood Pressure Mean 59 74 79 Blood Pressure Mean [Lying] Blood Pressure Mean [Sitting (for 1 minute prior to obtaining)] Blood Pressure Mean [Standing (for 1 minute prior to obtaining)] Pulse Ox 95 95 96 Oxygen Delivery Method Room Air Room Air Room Air 03/08/24 13:16 03/08/24 14:00 Temperature Temperature Source Pulse Rate 63 Pulse Rate [Lying] 88 Pulse Rate [Sitting (for 1 minute prior to obtaining)] 80 Pulse Rate [Standing (for 1 minute prior to obtaining)] 84 Respiratory Rate 16 Respiratory Effort Respiratory Pattern Blood Pressure 152/76 H Blood Pressure [Lying] 140/55 H Blood Pressure [Sitting (for 1 minute prior to obtaining)] 121/89 H Blood Pressure [Standing (for 1 minute prior to obtaining)] 152/76 H Blood Pressure Mean 101 Blood Pressure Mean [Lying] 83 Blood Pressure Mean [Sitting (for 1 minute prior to obtaining)] 99 Blood Pressure Mean [Standing (for 1 minute prior to obtaining)] 101 Pulse Ox 97 Oxygen Delivery Method Room Air Positive well nourished and well developed General Appearance ED: well developed and NAD HEENT Reports TM's clear and moist mucous membranes normocephalic and atraumatic; Negative for trauma or tenderness Tympanic Membrane ED: Yes TM's clear Eyes PERRL and EOMs intact bilaterally General Eye ED: Negative for pale conjunctiva or scleral icterus Neck no lymphadenopathy, supple and no JVD General: Negative for tenderness Chest Wall inspection of chest normal and palpation of chest normal Chest: Negative for tenderness Resp normal respiratory effort and clear to auscultation bilaterally Effort and Inspection: Negative for respiratory distress or pain with movement Auscultation: Negative for rhonchi, wheezes or diminished lung sounds Cardio regular rate, regular rhythm, S1 normal heart sound, S2 normal heart sound and no murmurs Peripheral Pulses: pulses 2+ throughout GI normal to inspection, nondistended, normoactive bowel sounds, soft to palpation, non-tender, non-distended and no masses Back/Spine no CVA tenderness and no thoracic nor lumbar tenderness Extremity normal to inspection General Extremety ED: Negative for edema General Extremity: Negative for edema Neuro oriented x3, CN's II-XII intact bilaterally, no sensory deficits noted and gait normal Sensorium / Orientation: awake, alert, oriented to person, oriented to place and oriented to time Motor Exam: strength 5/5 throughout and strength abnormal Psych mental status grossly normal Skin no rashes or lesions noted and no wounds MDM MDM MDM Narrative Medical decision making narrative: Patient presents with complaint of lightheadedness has been intermittent since yesterday. She denies recent illness. No specific complaints. Initially noted to be somewhat hypotensive with systolic of 87 and diastolic of 44 although EMS had a normal blood pressure on their documentation. She had an EKG obtained arrival that showed a sinus rhythm with ventricular rate of 61 bpm with LVH and no other acute ST segment changes noted. CBC with differential white count 9.6 with hemoglobin 12.6 and platelet count of 375. Chemistries unremarkable. BUN was 31 and creatinine 1.29. Troponin normal at 28. Urinalysis ordered and pending. Initially EMS had some concern about the living condition as patient only had a small space eaters in her bedroom and she had multiple cats and the home was in disarray. Apparently adult protective services is aware of patient and has been following with her. I will have our psychotherapist social worker see the patient as well. I discussed admission for IV fluids and hydration as it did seem that she had somewhat elevated BUN and creatinine compared to normal. Patient is adamant that she will not be admitted and does not want to stay. Patient is ANO x 3 and does have capacity to make that decision. She will allow for her urinalysis. Care of patient turned over to evening physician awaiting urinalysis results and final disposition. Patient was seen by psychotherapist social worker and patient reiterates that she does not want to leave her home and does not need any help and does not want to be admitted. Lab Data Attestation: I reviewed the patient's lab results. Labs: Laboratory Results - last 24 hr 03/08/24 12:30 WBC 9.6 RBC 3.99 L Hgb 12.6 Hct 37.7 MCV 94.5 MCH 31.6 MCHC 33.4 RDW Std Deviation 44.5 H RDW Coeff of Anu 12.9 Plt Count 375 MPV 8.9 Immature Gran % (Auto) 0.300 Neut % (Auto) 81.5 H Lymph % (Auto) 9.9 L [place] % (Auto) 7.3 Eos % (Auto) 0.9 Baso % (Auto) 0.1 Absolute Neuts (auto) 7.9 H Absolute Lymphs (auto) 0.95 Nucleated RBC % 0 Sodium 140 Potassium 3.6 Chloride 109 H Carbon Dioxide 25.0 Anion Gap 6 BUN 31 H Creatinine 1.29 H Estim Creat Clear Calc 43.04 Est GFR (MDRD) Af Amer 52 L Est GFR (MDRD) Non-Af 43 L BUN/Creatinine Ratio 24.0 H Glucose 128 H Calcium 9.4 Total Bilirubin 0.80 AST 30 ALT 39 Alkaline Phosphatase 81 Troponin I High Sens 28 Total Protein 7.7 Albumin 3.4 Globulin 4.3 H Albumin/Globulin Ratio 0.8 L EKG Initial EKG: Attestation: I personally reviewed and interpreted this EKG as follows: Comments: Sinus rhythm with rate of 61 bpm with LVH and early repull Discharge Plan Triage Chief Complaint: General Illness Other Complaint: Fall ED Provider: Wesley Henao Dx/Rx/DC Orders Clinical Impression: Dizziness, Dehydration, Syncope Instructions: ED Dehydration (Adult), ED Dizziness, Uncertain Cause, ED Fainting, Uncertain Cause Prescriptions: No Action atorvastatin 40 mg Tablet 40 mg PO QHS carvedilol 25 mg Tablet 25 mg PO BID Rx Instructions: must administer with a meal/food citalopram 20 mg Tablet 20 mg PO DAILY allopurinol 300 mg Tablet 300 mg PO DAILY lisinopril 40 mg Tablet 40 mg PO DAILY doxycycline hyclate 100 mg capsule 100 mg PO BID 5 Days Qty: 10 0RF cephalexin 500 mg capsule 500 mg PO Q6H 5 Days Qty: 21 0RF albuterol sulfate 2.5 mg /3 mL (0.083 %) solution for nebulization 2.5 mg inhalation Q4H PRN (Reason: shortness of breath or wheezing) Qty: 25 0RF Primary Care Provider: Adrian Campbell Referrals: Adrian Campbell DO [Primary Care Provider] - 3-5 Days Print Language: Mohawk
[2024-03-08] MEDS: 0.9% Normal Saline (1000mL) 1,000 ML 1000 ML IV (12:33)
--- NOTE | 2024-03-08 12:44 | ED.RN ---
Per EMS pt continues living in deplorable conditions at home, with garbage from floor to ceiling. According to EMS APS has a whole filing cabinet on her. EMS state they will speak to APS again.Pt is unkempt, smells of cat urine. Pt also states she has been without her home meds for past 3 weeks, i just haven't bothered to get them. ED MD, case management and charge nurse notified.
[2024-03-08 12:47] LABS: Absolute Lymphocyte Count 0.95 X10^3/uL (0.83-4.51); Absolute Neutrophil Count 7.9 X10^3/uL (2.0-7.7); Basophil# 0.01 X10^3/uL; Basophil% 0.1 % (0-1); Eosinophil# 0.09 X10^3/uL; Eosinophils% 0.9 % (0-5); Hematocrit 37.7 % (37-47); Hemoglobin 12.6 g/dL (12.0-15.0); Lymphocyte # 0.95 X10^3/ul (0.83-4.51); Lymphocyte % 9.9 % (19-41); Mean Corp Hgb Conc 33.4 g/dL (32-36); Mean Corpuscular Hgb 31.6 pg (27.0-32.0); Mean Corpuscular Volume 94.5 fL (81-99); Mean Platelet Vol. 8.9 fl (6.2-12.0); Monocyte% 7.3 % (0-10); NRBC Flagged by Analyzer 0 % (0-5); Neutrophil # 7.86 X10^3/uL (2.7-7.7); Neutrophil % 81.5 % (47-70); Platelet Count 375 K/mm3 (150-450); RBC Distribution Width CV 12.9 % (11.6-14.6); RBC Distribution Width SD 44.5 fl (35.1-43.9); Red Blood Count 3.99 M/mm3 (4.2-5.4); White Blood Count 9.6 K/mm3 (4.4-11.0)
[2024-03-08 13:04] LABS: ALB/GLOB Ratio 0.8 RATIO (0.9-2.4); AST(SGOT) 30 U/L (15-37); Alanine Aminotransfer ALT/SGPT 39 U/L (13-56); Albumin, Serum 3.4 g/dL (3.2-5.0); Alkaline Phosphatase 81 U/L (45-117); Anion Gap 6 (5-15); BUN 31 mg/dL (7-18); Calcium,Total 9.4 mg/dL (8.5-10.1); Chloride 109 mmol/L (98-107); Creatinine, Serum 1.29 mg/dL (0.55-1.02); EST Glomerular Filtration Rate 43 mL/min (>60); Est Glom Filt Rate - Afr Amer 52 mL/min (>60); Estimated Creatinine Clearance 43.04 ml/min; Globulin 4.3 g/dL (2.2-4.2); Glucose 128 mg/dL (74-106); Potassium 3.6 mmol/L (3.5-5.1); Protein, Total 7.7 g/dL (6.4-8.2); Sodium Level 140 mmol/L (136-145); Troponin-I HS 28 pg/mL (3.0-54.0)
[2024-03-08 15:26] LABS: Mucous, Urine 0 SEEN /hpf (<or=2+)
--- NOTE | 2024-03-08 15:33 | CM.ED ---
Social Work SW was notified per nurse that EMS had reported that patient is living in extreme hoarding conditions, has limited heat and is unsafe. Patient denies same, stating she does not let EMS in her home, that they pick her up on her porch s they would have no way to know her home conditions. SDOH completed, patient denies any concerns or need for assistance. Patient admits to not having propane at this time but states it just ran out and her neighbor was calling to get it filled. Patient admits to having up to 12 cats that she feeds twice a day. Patient was unkempt with a strong odor in ER. Patient was upset over questions, stating That is my house, I have lived in that house for 71 years and I will in that house. I take care of my house, myself and I take care of my animals! APS referral to be completed due to EMS report. Message left for Abraham at [facility] to return call. Mariaa Mckeon, EAR FLAP BINDER, PLAIN GOODS HEMMER
[2024-03-08 15:34] LABS: Color, Urine Yellow (Yellow); Glucose, Dipstick Normal (Normal); Ketone-Dipstick 5 mg/dl (Negative); Leukocyte Esterase-Dipstick 500 /ul (Negative); Nitrite-Dipstick Positive (Negative); Occult Blood-Urine 25 /ul (Negative); Protein-Dipstick 100 mg/dl (Negative); Specific Gravity, Urine 1.015 (1.002-1.030); Urine Bilirubin Dipstick Negative (Negative); Urine Clarity Cloudy (Clear); Urine Urobilinogen Normal (Normal)
[2024-03-08 15:43] LABS: Bacteria 2+ /hpf (None Seen); Fine Granular Cast- Urine 0-5 SEEN /lpf (0-5); Red Blood Cells-Urine 0-5 SEEN /hpf (0-5); Renal Epithelial Cells 0-5 SEEN /hpf (0-5); Squamous Epithelial Cells - UA 0-5 SEEN /hpf (5-10); White Blood Cells 25-50 SEEN /hpf (0-5)
--- NOTE | 2024-03-08 16:28 | ED.RN ---
THIS NURSE TOOK THIS TEAM OVER AFTER 1400 TODAY. THIS PT WAS DENYING BEING ADMITTED AT THIS TIME TO PREVIOUS NURSE. PT BEING D/C WITH ELEVATED BP AND PT WANTING TO GO HOME NOW. PT SPOKE TO FAMILY AND HAS A RIDE COMING TO GET HER.
--- NOTE | 2024-03-09 11:34 | CM.ED ---
Social Work SW attempted to reach Abraham at [facility]. Message left requesting return call. Mariaa Mckeon, SEROLOGIST, TRAFFIC CHECKER
--- NOTE | 2024-03-09 16:57 | CM.ED ---
Social Work SW spoke with Abraham at [facility] and made a report due to concerns from EMS regarding lack of heat and unsafe living conditions. Abraham stated they have had numerous calls on patient in the past, and that she would note SW call and follow up as able. Mariaa Mckeon, MILL OPERATOR HELPER, REHAB DIRECTOR
== END 2024-03-08 16:33 | disposition home or self-care (01) ==
LOC: ED 12:52
PROVIDERS: Emergency Provider Emergency Medicine; PCP Internal Medicine; Visit Provider Emergency Medicine
DX: N39.0 Urinary tract infection, site not specified (principal); N18.30 Chronic kidney disease, stage 3 unspecified; E86.0 Dehydration; R42 Dizziness and giddiness; E78.5 Hyperlipidemia, unspecified; R55 Syncope and collapse; I12.9 Hypertensive chronic kidney disease with stage 1 through stage 4 chronic kidney disease, or unspecified chronic kidney disease; R06.00 Dyspnea, unspecified; B96.20 Unspecified Escherichia coli [E. coli] as the cause of diseases classified elsewhere
CPT/HCPCS: 36415; 80053; 81001; 84484; 85025; 87040; 87077; 87086; 87088; 87186; 87631; 93005; 96360; 99285; A4216

== ENCOUNTER → 2024-03-23 | Outpatient (CLI) | payer BC, MEDICARE, SELFPAY ==
[2024-03-23 14:21] LABS: Absolute Neutrophil Count 5.3 X10^3/uL (2.0-7.7); Basophil# 0.01 X10^3/uL; Basophil% 0.1 % (0-1); Eosinophil# 0.19 X10^3/uL; Eosinophils% 2.6 % (0-5); Hematocrit 34.4 % (37-47); Hemoglobin 11.1 g/dL (12.0-15.0); Lymphocyte % 16.4 % (19-41); Mean Corp Hgb Conc 32.3 g/dL (32-36); Mean Corpuscular Hgb 30.8 pg (27.0-32.0); Mean Corpuscular Volume 95.6 fL (81-99); Mean Platelet Vol. 8.8 fl (6.2-12.0); Monocyte# 0.57 X10^3/uL; Monocyte% 7.8 % (0-10); NRBC Flagged by Analyzer 0 % (0-5); Neutrophil # 5.33 X10^3/uL (2.7-7.7); Platelet Count 266 K/mm3 (150-450); RBC Distribution Width CV 12.8 % (11.6-14.6); RBC Distribution Width SD 45.2 fl (35.1-43.9); White Blood Count 7.3 K/mm3 (4.4-11.0)
[2024-03-23 15:04] LABS: Hemoglobin A1c 5.3 % (3.8-5.6)
[2024-03-23 15:07] LABS: Anion Gap 5 (5-15); BUN 21 mg/dL (7-18); BUN/Creat Ratio 22.6 RATIO (10-20); Calcium,Total 8.9 mg/dL (8.5-10.1); Chloride 109 mmol/L (98-107); Cholesterol 155 mg/dL (200); Creatinine, Serum 0.93 mg/dL (0.55-1.02); EST Glomerular Filtration Rate 63 mL/min (>60); Est Glom Filt Rate - Afr Amer 76 mL/min (>60); Glucose 120 mg/dL (74-106); High Density Lipoprotein 53 mg/dL; Sodium Level 140 mmol/L (136-145); Triglycerides 176 mg/dL; Very Low Density Lipoprotein 35 mg/dL (5-40)
== END | disposition home or self-care (01) ==
LOC: VSLAB 13:57
PROVIDERS: PCP Nurse Practitioner Family
DX: I10 Essential (primary) hypertension (principal); Z13.1 Encounter for screening for diabetes mellitus; Z13.220 Encounter for screening for lipoid disorders
CPT/HCPCS: 36415; 80048; 80061; 83036; 84443; 85025

== ENCOUNTER → 2024-04-13 | Outpatient (CLI) | payer BC, MEDICARE, SELFPAY ==
[2024-04-13 17:37] LABS: Absolute Lymphocyte Count 0.98 X10^3/uL (0.83-4.51); Basophil# 0.01 X10^3/uL; Basophil% 0.1 % (0-1); Eosinophil# 0.11 X10^3/uL; Eosinophils% 1.3 % (0-5); Hematocrit 35.4 % (37-47); Hemoglobin 11.3 g/dL (12.0-15.0); Lymphocyte # 0.98 X10^3/ul (0.83-4.51); Lymphocyte % 11.2 % (19-41); Mean Corp Hgb Conc 31.9 g/dL (32-36); Mean Corpuscular Hgb 30.9 pg (27.0-32.0); Mean Corpuscular Volume 96.7 fL (81-99); Mean Platelet Vol. 9.1 fl (6.2-12.0); Monocyte# 0.63 X10^3/uL; Monocyte% 7.2 % (0-10); NRBC Flagged by Analyzer 0 % (0-5); Neutrophil # 6.99 X10^3/uL (2.7-7.7); Neutrophil % 79.9 % (47-70); Platelet Count 298 K/mm3 (150-450); RBC Distribution Width CV 12.8 % (11.6-14.6); RBC Distribution Width SD 45.5 fl (35.1-43.9); Red Blood Count 3.66 M/mm3 (4.2-5.4); White Blood Count 8.8 K/mm3 (4.4-11.0)
[2024-04-13 18:25] LABS: Ferritin 154 ng/mL (22-378)
== END | disposition home or self-care (01) ==
LOC: VSLAB 13:36
PROVIDERS: PCP Nurse Practitioner Family
DX: D64.9 Anemia, unspecified (principal)
CPT/HCPCS: 36415; 82728; 82746; 83540; 83550; 85025